=== PATIENT | male | born 1930 | race Caucasian/White ===

== ENCOUNTER 2016-08-06 18:30 | Emergency (ER) | payer MEDICARE ==
--- NOTE | 2016-08-06 18:51 | ER Document Report ---
ED General - General Stated Complaint: ALTERED MENTAL STATUS Time seen by provider: 18:48 Mode of Arrival: Stretcher Information source: Outside Facility Records TRAVEL OUTSIDE OF THE [place] IN LAST 30 DAYS: No - HPI Patient complains to provider of: change in mental status Onset: This morning Onset/Duration: Gradual Quality of pain: No pain Notes: Patient is an 86-year-old male sent from local retirement for complaints of change in mental status, according to nursing staff patient is usually ambulatory, engages in conversation, he has occasional falls, today he suffered 2 falls, has been less communicative and has not been eating or drinking well, EMS reports his pulse ox on arrival was 72%, however in the emergency room and is 97% on room air, patient has no complaints at present time, denies having any pain, no shortness of breath, no abdominal pain, no chest pain - Related Data Allergies/Adverse Reactions: No Known Allergies Allergy (Verified 05/03/14 18:51) Past Medical History - General Information source: Patient, Emergency Med Personnel, Outside Facility Records - Social History Smoking Status: Unknown if Ever Smoked Family History: Reviewed & Not Pertinent - Past Medical History Cardiac Medical History: Reports: Hx Coronary Artery Disease, Hx Hypercholesterolemia, Hx Hypertension Neurological Medical History: Denies: Hx Cerebrovascular Accident Renal/ Medical History: Reports: Hx Kidney Stones GI Medical History: Reports: Hx Diverticulitis Past Surgical History: Reports: Hx Abdominal Surgery - inguinal hernia repair, Hx Appendectomy, Hx Cardiac Catheterization, Hx Cardiac Surgery - triple bypass , stents placed - Immunizations Hx Diphtheria, Pertussis, Tetanus Vaccination: No Review of Systems - Review of Systems -: Yes ROS unobtainable due to patient's medical condition Neurological/Psychological: Confusion Physical Exam - Vital signs Vitals: Temp Pulse Resp BP Pulse Ox 98.9 F 105 H 16 123/79 97 08/06/16 18:50 08/06/16 18:50 08/06/16 18:50 08/06/16 18:50 08/06/16 18:50 Interpretation: Normal - General General appearance: Alert In distress: None Notes: Patient appears chronically ill, cachectic - HEENT Head: Normocephalic, Atraumatic Eyes: Normal Conjunctiva: Normal Extraocular movements intact: Yes Eyelashes: Normal Pupils: PERRL Sinus: Normal Nasal: Normal Mouth/Lips: Normal Mucous membranes: Dry Pharynx: Normal Neck: Normal - Respiratory Respiratory status: No respiratory distress Chest status: Nontender Breath sounds: Normal Chest palpation: Normal - Cardiovascular Rhythm: Regular Heart sounds: Normal auscultation Murmur: No - Abdominal Inspection: Normal Distension: No distension Bowel sounds: Normal Tenderness: Nontender Organomegaly: No organomegaly - Back Back: Normal, Nontender - Extremities General upper extremity: Normal inspection, Nontender, Normal color, Normal ROM , Normal temperature General lower extremity: Normal inspection, Nontender, Normal color, Normal ROM , Normal temperature. No: Daryl's sign - Neurological Cognition: Confused Orientation: Disoriented to place, Disoriented to events Shahbaz Coma Scale Eye Opening: Spontaneous Shahbaz Coma Scale Verbal: Confused [place] Coma Scale Motor: Obeys Commands Shahbaz Coma Scale Total: 14 Speech: Normal Motor strength normal: LUE, RUE, LLE, RLE Sensory: Normal - Psychological Associated symptoms: Normal affect, Normal mood - Skin Skin Temperature: Warm Skin Moisture: Dry Skin Color: Normal Course - Re-evaluation Re-evalutation: 08/07/16 01:02 I placed a call the patient's son who is the next of kin and emergency contact of record, Sukumar Zelaya, patient confirms that patient is in fact a DO NOT RESUSCITATE/DO NOT INTUBATE, and that the last time patient had a cardiac issue he did not want to have any invasive procedure such as a cardiac catheterization or a bypass surgery, patient's son confirms that he does not wish to have his father subjected to any invasive procedures, he states he talked to his father at least twice in the past week during visits to the retirement, he feels as though his father has "given up on life", and is likely ready to , patient's son Sukumar reports that he would just like to keep patient comfortable at this point in time, patient does have a DO NOT RESUSCITATE according to the retirement and previous hospital records 08/07/16 01:24 Patient was discussed with the hospitalist who does not feel as though patient meets criteria for inpatient admission, as according to family members he is comfort care only at this point in time, recommends patient be started on a beta zara and daily aspirin, and be discharged back to the retirement Patient continues to rest comfortably, denies having any complaints, stable vital signs 08/07/16 04:05 Compotype Operator was called and requested to page patient's primary care provider Dr. May 08/07/16 04:32 Once again paraffin plant operator was called and requested page patient's primary care provider Dr. May 08/07/16 04:45 Since patient is a DO NOT RESUSCITATE and comfort care only, has no complaints at present time with stable vital signs, OB discharge back to the retirement with prescription for antibiotics for treatment of urinary tract infection - Vital Signs Vital signs: Temp Pulse Resp BP Pulse Ox 97.7 F 105 H 21 H 123/79 99 08/06/16 23:00 08/06/16 18:50 08/06/16 23:00 08/06/16 18:50 08/06/16 23:00 - Laboratory Result Diagrams: 08/06/16 19:10 08/06/16 19:10 Laboratory results interpreted by me: 08/06/16 08/06/16 08/06/16 19:10 19:10 20:09 RDW 15.1 H Seg Neutrophils % 84.6 H Lymphocytes % 8.3 L BUN 26 H Glucose 161 H Total Bilirubin 1.8 H Direct Bilirubin 0.6 H TSH Free T4 Urine Protein 100 H Urine Ketones TRACE H Urine Blood LARGE H Urine Urobilinogen 4.0 H Ur Leukocyte Esterase SMALL H 08/07/16 01:56 RDW Seg Neutrophils % Lymphocytes % BUN Glucose Total Bilirubin Direct Bilirubin TSH < 0.02 L Free T4 3.33 H Urine Protein Urine Ketones Urine Blood Urine Urobilinogen Ur Leukocyte Esterase - Diagnostic Test Radiology reviewed: Image reviewed, Reports reviewed - EKG Interpretation by Me Rate: Tachycardia Rhythm: A.Fib, A.Flutter Discharge - Discharge Clinical Impression: Urinary tract infection Qualifiers: Urinary tract infection type: site unspecified Hematuria presence: without hematuria Qualified Code(s): N39.0 - Urinary tract infection, site not specified Condition: Stable Disposition: HOME, SELF-CARE Instructions: Urinary Tract Infection ([facility]) Additional Instructions: Follow up with your primary care provider in one to 2 days. Return to the emergency room immediately if symptoms worsen or any additional concerns. Prescriptions: Cephalexin Monohydrate [Keflex 500 mg Capsule] 500 mg PO BID #20 capsule
[2016-08-06 19:20] LABS: ABSOLUTE BASOPHILS # (AUTO) 0.1 10^3/uL (0.0-0.2); ABSOLUTE EOSINOPHILS # (AUTO) 0.1 10^3/uL (0.0-0.6); ABSOLUTE LYMPHOCYTES (AUTO) 0.8 10^3/uL (0.5-4.7); ABSOLUTE MONOCYTES (AUTO) 0.5 10^3/uL (0.1-1.4); ABSOLUTE NEUT (AUTO) 7.6 10^3/uL (1.7-8.2); BASOPHILS % (AUTO) 0.7 % (0-2); EOSINOPHILS % (AUTO) 1.1 % (0-6); HEMATOCRIT 41.3 % (37.9-51.0); HEMOGLOBIN 14.1 g/dL (13.5-17.0); LYMPHOCYTES % (AUTO) 8.3 % (13-45); MEAN CORPUSCULAR HEMOGLOBIN 30.3 pg (27.0-33.4); MEAN CORPUSCULAR HGB CONC 34.1 g/dL (32.0-36.0); MEAN CORPUSCULAR VOLUME 89 fl (80-97); MONOCYTES % (AUTO) 5.3 % (3-13); RED BLOOD COUNT 4.66 10^6/uL (4.35-5.55); RED CELL DISTRIBUTION WIDTH 15.1 % (11.5-14.0); SEGMENTED NEUTROPHILS % (AUTO) 84.6 % (42-78)
[2016-08-06 19:22] LABS: VENOUS BLOOD BASE EXCESS -0.8 mmol/L; VENOUS BLOOD HCO3 24.3 mmol/L (20-32); VENOUS BLOOD PCO2 41.9 mmHg (35-63); VENOUS BLOOD PH 7.38 (7.30-7.42)
[2016-08-06 19:39] LABS: ALANINE AMINOTRANSFERASE 24 U/L (21-72); ALBUMIN 3.5 g/dL (3.5-5.0); ALKALINE PHOSPHATASE 81 U/L (38-126); ANION GAP 13 (5-19); ASPARTATE AMINO TRANSFERASE 22 U/L (17-59); BILIRUBIN,DIRECT 0.6 mg/dL (0.0-0.4); BILIRUBIN,TOTAL 1.8 mg/dL (0.2-1.3); BLOOD UREA NITROGEN 26 mg/dL (7-20); CALCIUM 8.9 mg/dL (8.4-10.2); CARBON DIOXIDE 26 mmol/L (22-30); CHLORIDE 101 mmol/L (98-107); CREATININE RESULT 0.99 mg/dL (0.52-1.25); GLUCOSE 161 mg/dL (75-110); POTASSIUM 3.9 mmol/L (3.6-5.0); SODIUM 140.2 mmol/L (137-145); TOTAL PROTEIN 6.9 g/dL (6.3-8.2)
[2016-08-06 20:26] LABS: APPEARANCE,URINE SLIGHTLY-CLOUDY; BILIRUBIN,URINE NEGATIVE (NEGATIVE); GLUCOSE, URINE NEGATIVE (NEGATIVE); KETONES,URINE TRACE mg/dL (NEGATIVE); LEUKOCYTE ESTERASE,URINE SMALL (NEGATIVE); NITRITE,URINE NEGATIVE (NEGATIVE); PROTEIN,URINE 100 mg/dL (NEGATIVE); URINE SPECIFIC GRAVITY 1.027
[2016-08-06] MEDS ORDERED: NORMAL SALINE 1000 ML 1,000 ML IV PRN ×2 (20:43)
[2016-08-06] MEDS ORDERED: CEPHALEXIN 500 MG CAPSULE PO ONE (21:14)
[2016-08-06 23:20] LABS: CREATINE KINASE MB 1.94 ng/mL (<4.55)
[2016-08-06 23:22] LABS: TROPONIN I 0.111 ng/mL
[2016-08-07 00:47] LABS: CREATINE KINASE MB 1.66 ng/mL (<4.55)
[2016-08-07 00:51] LABS: TROPONIN I 0.153 ng/mL
[2016-08-07] MEDS ORDERED: ASPIRIN 81 MG TABLET, CHEWABLE PO ONE (01:38)
[2016-08-07] MEDS ORDERED: METOPROLOL TARTRATE 25 MG TABLET PO ONE (01:41)
[2016-08-07 02:33] LABS: FREE T3 5.01 pg/mL (2.77-5.27)
[2016-08-07 02:47] LABS: THYROID STIMULATING HORMONE < 0.02 uIU/mL (0.47-4.68)
[2016-08-07 05:09] VITALS: BP 106/70
--- NOTE | 2016-08-07 07:21 | EKG REPORT ---
SEVERITY:- ABNORMAL ECG - ATRIAL FIBRILLATION LEFT BUNDLE BRANCH BLOCK : Confirmed by: David Arrieta MD 07-Aug-2016 07:20:42
--- NOTE | 2016-08-07 07:23 | EKG REPORT ---
SEVERITY:- ABNORMAL ECG - SINUS TACHYCARDIA WITH PAC AND PVC. LEFT BUNDLE BRANCH BLOCK : Confirmed by: David Arrieta MD 07-Aug-2016 07:22:24
--- NOTE | 2016-08-07 07:24 | EKG REPORT ---
SEVERITY:- ABNORMAL ECG - SINUS TACH WITH PAC LEFT BUNDLE BRANCH BLOCK MUSCLE TREMORS. : Confirmed by: David Arrieta MD 07-Aug-2016 07:23:37
== END 2016-08-07 06:00 | disposition home or self-care (01) ==
LOC: ER 18:30
DX: N39.0 Urinary tract infection, site not specified (principal); R41.82 Altered mental status, unspecified; W19.XXXA Unspecified fall, initial encounter; Y92.129 Unspecified place in nursing home as the place of occurrence of the external cause; I25.10 Atherosclerotic heart disease of native coronary artery without angina pectoris; E78.00 Pure hypercholesterolemia, unspecified; I11.0 Hypertensive heart disease with heart failure; Z87.442 Personal history of urinary calculi; Z95.1 Presence of aortocoronary bypass graft; Z66 Do not resuscitate
CPT/HCPCS: 93005 ×2; 99285; 36415; 87040; 87086; 84439; 82553; 82550; 84443; 85025; 80053; 81001; 84484; 84481; 82803; 71010; 70450; 93010 ×2; A9270 ×3; J7030

== ENCOUNTER 2016-08-07 19:15 | Emergency (ER) | payer MEDICARE ==
--- NOTE | 2016-08-07 19:48 | ER Document Report ---
ED General - General Stated Complaint: FALL/WELL CHECK Time seen by provider: 19:40 Notes: Patient is an 86-year-old male that comes emergency department from long-term care facility by EMS for chief complaint of weakness. Son is with patient tonight, patient was evaluated here yesterday discharged, son states the patient barely eat anything, is reduced in his responsiveness, and has just stopped walking. He states within the past weeks to even days patient has been eating, ambulating, and functioning at a high level. No fevers, no complaints reported otherwise. Patient denies any pain, states he feels "fine". Patient oriented to place, person, and others. Patient is DO NOT RESUSCITATE, desires no procedures, however family is stating that any other interventions they do want. Son also states he was informed today that patient fell 2 weeks ago at the intermediate also no injury specifically reported patient and family cannot tell me any details of the fall. Past medical history of open heart surgery, stent placement, hyperlipidemia, hypothyroidism, kidney stones, paroxysmal atrial fibrillation with no history of treatment for this, abdominal surgeries including appendectomy and hernia repair. TRAVEL OUTSIDE OF THE [place] IN LAST 30 DAYS: No - Related Data Allergies/Adverse Reactions: No Known Allergies Allergy (Verified 05/03/14 18:51) Past Medical History - General Information source: Patient, Relative - Son - Social History Smoking Status: Never Smoker Frequency of alcohol use: None Drug Abuse: None Lives with: Shelter Family History: Reviewed & Not Pertinent - Past Medical History Cardiac Medical History: Reports: Hx Coronary Artery Disease, Hx Hypercholesterolemia, Hx Hypertension Neurological Medical History: Denies: Hx Cerebrovascular Accident Renal/ Medical History: Reports: Hx Kidney Stones. Denies: Hx Peritoneal Dialysis GI Medical History: Reports: Hx Diverticulitis Past Surgical History: Reports: Hx Abdominal Surgery - inguinal hernia repair, Hx Appendectomy, Hx Cardiac Catheterization, Hx Cardiac Surgery - triple bypass , stents placed - Immunizations Hx Diphtheria, Pertussis, Tetanus Vaccination: No Review of Systems - Review of Systems Constitutional: See HPI EENT: No symptoms reported Cardiovascular: No symptoms reported Respiratory: No symptoms reported Gastrointestinal: No symptoms reported Genitourinary: No symptoms reported Male Genitourinary: No symptoms reported Musculoskeletal: No symptoms reported Skin: No symptoms reported Hematologic/Lymphatic: No symptoms reported Neurological/Psychological: See HPI Physical Exam - Vital signs Vitals: Temp Pulse Resp BP Pulse Ox 98.1 F 89 16 125/69 95 08/07/16 20:59 08/07/16 20:59 08/07/16 20:59 08/07/16 20:59 08/07/16 20:59 Interpretation: Normal - General General appearance: Appears well, Alert In distress: None - Patient lying quietly on the bed - HEENT Head: Normocephalic, Atraumatic Eyes: Normal Conjunctiva: Normal Extraocular movements intact: Yes Eyelashes: Normal Pupils: PERRL Nasal: Normal Mouth/Lips: Normal Mucous membranes: Normal Pharynx: Normal Neck: Normal - Respiratory Respiratory status: No respiratory distress Chest status: Nontender. No: Tender Breath sounds: Normal. No: Decreased air movement Chest palpation: Normal - Cardiovascular Rhythm: Regular. No: Tachycardia, Bradycardia Heart sounds: Normal auscultation, S1 appreciated, S2 appreciated Murmur: Yes - /6 heard throughout - Abdominal Inspection: Normal Distension: No distension Bowel sounds: Normal Tenderness: Nontender. No: Tender, Guarding Organomegaly: No organomegaly - Back Back: Normal, Nontender. No: Tender, Vertebra tenderness - Extremities General upper extremity: Normal inspection, Nontender, Normal color, Normal ROM , Normal temperature General lower extremity: Normal inspection - No signs of injury, no tenderness with palpation of the hips, patient raises both legs up off the bed without difficulty, Nontender, Normal color, Normal ROM, Normal temperature, Normal weight bearing. 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 EKG shows left bundle branch block and is consistent with previous EKG, troponin indeterminate, decreased from prior, no complaints of chest pain. Chest x-ray unremarkable. CBC, chemistry with no significant change or abnormality. Urinalysis shows hematuria still present, patient with no flank pain or abdominal pain, no fever, urine culture placed, patient is already on Keflex. Son with concern about dad's decline, states he thinks patient has kind of checked out and is acting like he is ready to go. Patient does not specifically say this. I do suspect there is a component of this, although there is no obvious evidence of acute illness or abnormality requiring hospitalization. I discussed with Dr. Jones, recommends discharge back to nursing facility with return precautions and primary care follow-up. I did discuss all details with son and his in detail, they state understanding, they state gratefulness for information and agreement with patient going back to the intermediate tonight. - Vital Signs Vital signs: Temp Pulse Resp BP Pulse Ox 98.1 F 64 18 146/78 H 96 08/07/16 20:59 08/08/16 00:34 08/08/16 00:34 08/08/16 00:34 08/08/16 00:34 - Laboratory Result Diagrams: 08/07/16 20:45 08/07/16 20:45 Laboratory results interpreted by me: 08/07/16 08/07/16 08/07/16 20:45 20:45 21:15 RBC 4.04 L Hgb 12.2 L Hct 35.5 L RDW 14.8 H BUN 21 H Calcium 8.0 L Total Bilirubin 1.6 H Direct Bilirubin 0.5 H Total Protein 5.8 L Albumin 2.8 L Urine Protein 30 H Urine Blood SMALL H Urine Urobilinogen 4.0 H Ur Leukocyte Esterase SMALL H Discharge - Discharge Clinical Impression: Weakness Condition: Stable Disposition: HOME, SELF-CARE Additional Instructions: No acute abnormalities are noted on his workup today, we have a urine culture pending, continue Keflex antibiotic. Examination and workup consistent with general decline. Follow-up with primary care. Return to the emergency department for any concerning or worsening symptoms including abdominal or chest pain, fever, etc.
[2016-08-07 20:55] LABS: ABSOLUTE BASOPHILS # (AUTO) 0.1 10^3/uL (0.0-0.2); ABSOLUTE EOSINOPHILS # (AUTO) 0.1 10^3/uL (0.0-0.6); ABSOLUTE LYMPHOCYTES (AUTO) 0.9 10^3/uL (0.5-4.7); ABSOLUTE MONOCYTES (AUTO) 0.5 10^3/uL (0.1-1.4); ABSOLUTE NEUT (AUTO) 5.6 10^3/uL (1.7-8.2); BASOPHILS % (AUTO) 0.9 % (0-2); EOSINOPHILS % (AUTO) 1.9 % (0-6); HEMATOCRIT 35.5 % (37.9-51.0); HEMOGLOBIN 12.2 g/dL (13.5-17.0); HGB HCT DIFFERENCE 1.1; LYMPHOCYTES % (AUTO) 13.1 % (13-45); MEAN CORPUSCULAR HEMOGLOBIN 30.1 pg (27.0-33.4); MEAN CORPUSCULAR HGB CONC 34.3 g/dL (32.0-36.0); MEAN CORPUSCULAR VOLUME 88 fl (80-97); MONOCYTES % (AUTO) 7.3 % (3-13); RED BLOOD COUNT 4.04 10^6/uL (4.35-5.55); RED CELL DISTRIBUTION WIDTH 14.8 % (11.5-14.0); SEGMENTED NEUTROPHILS % (AUTO) 76.8 % (42-78); WHITE BLOOD COUNT 7.2 10^3/uL (4.0-10.5)
[2016-08-07 21:15] LABS: ALANINE AMINOTRANSFERASE 29 U/L (21-72); ALBUMIN 2.8 g/dL (3.5-5.0); ALKALINE PHOSPHATASE 73 U/L (38-126); ANION GAP 11 (5-19); ASPARTATE AMINO TRANSFERASE 19 U/L (17-59); BILIRUBIN,DIRECT 0.5 mg/dL (0.0-0.4); BILIRUBIN,TOTAL 1.6 mg/dL (0.2-1.3); BLOOD UREA NITROGEN 21 mg/dL (7-20); CARBON DIOXIDE 23 mmol/L (22-30); CHLORIDE 106 mmol/L (98-107); CREATINE KINASE 87 U/L (55-170); CREATININE RESULT 0.75 mg/dL (0.52-1.25); GLUCOSE 96 mg/dL (75-110); SODIUM 139.7 mmol/L (137-145); TOTAL PROTEIN 5.8 g/dL (6.3-8.2)
[2016-08-07 21:26] LABS: CREATINE KINASE MB 1.66 ng/mL (<4.55)
[2016-08-07 21:31] LABS: TROPONIN I 0.08 ng/mL
[2016-08-07 21:35] LABS: APPEARANCE,URINE SLIGHTLY-CLOUDY; BILIRUBIN,URINE NEGATIVE (NEGATIVE); GLUCOSE, URINE NEGATIVE (NEGATIVE); KETONES,URINE NEGATIVE (NEGATIVE); LEUKOCYTE ESTERASE,URINE SMALL (NEGATIVE); NITRITE,URINE NEGATIVE (NEGATIVE); PROTEIN,URINE 30 mg/dL (NEGATIVE); URINE SPECIFIC GRAVITY 1.027
[2016-08-07] MEDS ORDERED: NORMAL SALINE 1000 ML 500 ML IV ONE (21:48)
[2016-08-08 00:35] VITALS: BP 146/78
--- NOTE | 2016-08-08 08:27 | EKG REPORT ---
SEVERITY:- ABNORMAL ECG - SINUS RHYTHM W PACS LEFT BUNDLE BRANCH BLOCK : Confirmed by: David Arrieta MD 08-Aug-2016 08:26:46
== END 2016-08-08 00:35 | disposition home or self-care (01) ==
LOC: ER 19:15
DX: R53.1 Weakness (principal); E03.9 Hypothyroidism, unspecified; I25.10 Atherosclerotic heart disease of native coronary artery without angina pectoris; E78.00 Pure hypercholesterolemia, unspecified; Z87.442 Personal history of urinary calculi; Z95.1 Presence of aortocoronary bypass graft; Z66 Do not resuscitate
CPT/HCPCS: 93005; 99285; 36415; 87086; 82553; 82550; 85025; 80053; 81001; 84484; 71010; 93010; J7030

== ENCOUNTER 2016-10-30 10:21 | Emergency (ER) | payer MEDICARE ==
--- NOTE | 2016-10-30 11:10 | ER Document Report ---
ED General - General Chief Complaint: Leg Pain Stated Complaint: FALL;FEMUR PAIN Time Seen by Provider: 10/30/16 10:44 TRAVEL OUTSIDE OF THE [place] IN LAST 30 DAYS: No - HPI Notes: Patient is a 6-year-old male who presents the ED complaining of right hip and leg pain status post a fall on his right side yesterday. Patient has a history of gout, coronary artery disease, hypothyroid, A. fib (paroxysmal), Parkinson, dementia. Patient states that he was walking by himself lost his footing and fell onto his right side, he denies any head or neck injury. Patient states that he has not had any other pains. He still eating and drink without problems. Urinary and bowel movements have been normal. Patient states that he did get evaluation yesterday and imaging by [facility]. Radiologist read and inconclusive results and suggested further evaluation with CT scan of the pelvis and right hip. Since his pain, patient has not been able to ambulate normally. Patient states he is otherwise feeling okay with no other concerns or complaints. Denies any headache, dizziness, URI, fever, chest pain, palpations, syncope, cough, wheeze, shortness of breath, abdominal pain, nausea/ vomiting/diarrhea, melena, hematochezia, dysuria, hematuria, back pain, acute, muscle weakness/paralysis or rash. - Related Data Allergies/Adverse Reactions: No Known Allergies Allergy (Verified 10/30/16 10:48) Past Medical History - Social History Smoking Status: Unknown if Ever Smoked Family History: Reviewed & Not Pertinent - Past Medical History Cardiac Medical History: Reports: Hx Atrial Fibrillation, Hx Coronary Artery Disease, Hx Hypercholesterolemia, Hx Hypertension Neurological Medical History: Denies: Hx Cerebrovascular Accident Renal/ Medical History: Reports: Hx Kidney Stones. Denies: Hx Peritoneal Dialysis GI Medical History: Reports: Hx Diverticulitis Musculoskeltal Medical History: Reports Hx Arthritis - gout Past Surgical History: Reports: Hx Abdominal Surgery - inguinal hernia repair, Hx Appendectomy, Hx Cardiac Catheterization, Hx Cardiac Surgery - triple bypass , stents placed - Immunizations Hx Diphtheria, Pertussis, Tetanus Vaccination: No Review of Systems - Review of Systems Notes: REVIEW OF SYSTEMS: CONSTITUTIONAL : Denies fever, chills, or sweats. Denies recent illness. EENT: Denies eye, ear, throat, or mouth pain or symptoms. Denies nasal or sinus congestion or discharge. Denies throat, tongue, or mouth swelling or difficulty swallowing. CARDIOVASCULAR: Denies chest pain. Denies palpitations or racing or irregular heart beat. Denies ankle edema. RESPIRATORY: Denies cough, cold, or chest congestion. Denies shortness of breath, difficulty breathing, or wheezing. GASTROINTESTINAL: Denies abdominal pain or distention. Denies nausea, vomiting , or diarrhea. Denies blood in vomitus, stools, or per rectum. Denies black, tarry stools. Denies constipation. GENITOURINARY: Denies difficulty urinating, painful urination, burning, frequency, blood in urine, or discharge. MUSCULOSKELETAL: see hpi SKIN: Denies rash, lesions or sores. NEUROLOGICAL: Denies confusion or altered mental status. Denies passing out or loss of consciousness. Denies dizziness or lightheadedness. Denies headache. Denies weakness or paralysis or loss of use of either side. Denies problems with gait or speech. Denies sensory loss, numbness, or tingling. Denies seizures. PSYCHIATRIC: Denies anxiety or stress. Denies depression, suicidal ideation, or homicidal ideation. ALL OTHER SYSTEMS REVIEWED AND NEGATIVE. Dictation was performed using [employer] voice recognition software Physical Exam - Vital signs Vitals: Temp Pulse Resp BP Pulse Ox 98.5 F 66 18 112/66 98 10/30/16 10:28 10/30/16 10:28 10/30/16 10:28 10/30/16 10:28 10/30/16 10:28 Notes: PHYSICAL EXAMINATION: GENERAL: Well-appearing, well-nourished and in no acute distress. A&Ox2 HEAD: Atraumatic, normocephalic. Non-tender. No smith sign. EYES: Pupils equal round and reactive to light, extraocular movements intact, sclera anicteric, conjunctiva are normal. No raccoon eyes. ENT: EAC clear b/l. TM's intact b/l without erythema, fluid, or perforation. Nares patent and without discharge. oropharynx clear without exudates. No tonsilar hypertrophy or erythema. Moist mucous membranes. No sinus tenderness. No hemotympanum/CSF discharge. NECK: Normal range of motion, supple without lymphadenopathy. No rigidity/ tenderness. Chest: non-tender. No flail chest. Equal rise/fall. LUNGS: Breath sounds clear to auscultation bilaterally and equal. No wheezes rales or rhonchi. HEART: Regular rate and rhythm without murmurs, rubs, gallops. ABDOMEN: Soft, nontender, nondistended abdomen. No guarding, no rebound. No masses appreciated. Normal bowel sounds present. No CVA tenderness bilaterally. No ecchymosis. Musculoskeletal: + tenderness to the rt hip/femur and tib/fib. No knee tenderness. LROM due to pain of the hip. FROM to the knee/ankle. PUlse 1+ b/ l. Sensation intact. Extremities: No cyanosis, clubbing, or edema b/l. Peripheral pulses 1+. Capillary refill less than 3 seconds. NEUROLOGICAL: Cranial nerves grossly intact. Normal sensory, motor exams. Speech is hard to understand at times, and not always clear. PSYCH: Normal mood, normal affect. SKIN: Warm, Dry, normal turgor, no rashes or lesions noted. Course - Re-evaluation Re-evalutation: 10/30/16 13:33 Patient is an afebrile, well-hydrated, 86-year-old male the ED complaining of right hip and leg pain. Vitals are stable. PE otherwise unremarkable. Patient did have an x-ray performed yesterday due to hip pain and it was inclusive they recommended CT scan of pelvis and right hip. CT scan of the hip and pelvis were ordered today, which showed an acute right intertrochanteric proximal femur fracture. Preop workup started, 100 mL/h normal saline started, and low-dose of morphine was given for pain control. PE otherwise unremarkable. Patient appears to be neurologically intact without any focal muscle weakness or deficit patient is not known to be on any anticoagulants. Reviewed with Dr. Bauer, [facility] orthopedist, who will accept patient on the ED to ED transfer. Reviewed case with Dr. Gonzalez as well was in agreement. Directions per orthopedic otherwise. Return to ED with any other worsening/concerning symptoms as reviewed. Patient is in agreement. 10/30/16 15:20 urine came back with an infection: Rocephin 1g given IV. Pt transport arrived. Pt states he is feeling good, no new concerns. Vitals stable. Stable for transport. - Vital Signs Vital signs: Temp Pulse Resp BP Pulse Ox 98.3 F 69 20 156/74 H 95 10/30/16 15:06 10/30/16 15:06 10/30/16 15:06 10/30/16 15:06 10/30/16 15:06 - Laboratory Result Diagrams: 10/30/16 13:58 10/30/16 13:58 Laboratory results interpreted by me: 10/30/16 10/30/16 10/30/16 13:58 13:58 14:40 RBC 4.20 L Hgb 12.4 L Hct 37.5 L RDW 18.8 H Seg Neutrophils % 78.2 H ALT 20 L Albumin 3.3 L Urine Protein 100 H Urine Blood SMALL H Urine Nitrite POSITIVE H Ur Leukocyte Esterase MODERATE H Discharge - Discharge Clinical Impression: Intertrochanteric fracture of right femur Qualifiers: Encounter type: initial encounter Fracture type: closed Fracture alignment: nondisplaced Qualified Code(s): S72.144A - Nondisplaced intertrochanteric fracture of right femur, initial encounter for closed fracture Condition: Stable Disposition: [facility] Referrals: SHANNEN GREY MD [Primary Care Provider] - Follow up as needed
--- NOTE | 2016-10-30 12:04 | RADIOLOGY REPORT (SQ) ---
EXAM DESCRIPTION: TIBIA FIBULA RIGHT COMPLETED DATE/TIME: 10/30/2016 11:39 am REASON FOR STUDY: rt hip/leg pain. COMPARISON: None. TECHNIQUE: Three views right tibia and fibula. LIMITATIONS: None. FINDINGS: No acute fracture or bony destructive change identified. Limited visualization of the kne e and ankle intact. Numerous surgical clips seen medially of the soft tissues. Arterial calcification. IMPRESSION: No acute bony changes. TECHNICAL DOCUMENTATION: JOB ID: [id number]- All Rights Reserved
--- NOTE | 2016-10-30 12:09 | RADIOLOGY REPORT (SQ) ---
EXAM DESCRIPTION: CT RT LOWER EXTREMITY WITHOUT COMPLETED DATE/TIME: 10/30/2016 11:27 am REASON FOR STUDY: rt hip/leg pain. COMPARISON: CT bony pelvis same date TECHNIQUE: CT scan of the right hip from the acetabulum to the tibia performed without intravenous o r oral contrast. Images reviewed with soft tissue and bone windows. Reconstructed coronal and sagittal MPR images reviewed. All images stored on PACS. All CT scanners at this facility use dose modulation, iterative reconstruction, and/or weight based d osing when appropriate to reduce radiation dose to as low as reasonably achievable (ALARA). [facility]: Dose Right [facility]: CareDose [facility]: Dose Right [facility]: Teradose 4D [facility]: [employer] RADIATION DOSE: Up-to-date CT equipment and radiation dose reduction techniques were employed. CTDIv ol: 4.1 mGy. DLP: 321 mGy-cm. mGy. LIMITATIONS: None. FINDINGS: An acute right intertrochanteric comminuted fracture present without significant varus ang ulation. Old healed right superior and inferior pubic ramus fractures. Remainder of the right femur is intact. Please note that there is some motion artifact. Chondrocalc inosis right knee. Soft tissue windows demonstrate atherosclerotic arterial vascular calcification throughout the field of view, and a left-sided double-J ureteral stent with the distal loop in the urinary bladder. IMPRESSION: Acute right intertrochanteric proximal femoral fracture. TECHNICAL DOCUMENTATION: JOB ID: [id number] Quality ID # [id number]: Final reports with documentation of one or more dose reduction techniques (e.g., Au tomated exposure control, adjustment of the mA and/or kV according to patient size, use of iterative reconstruction technique) 2010 [employer]- All Rights Reserved
[2016-10-30] MEDS ORDERED: MORPHINE SULFATE 10 MG/ML INJ IV ONE (12:28)
[2016-10-30] MEDS ORDERED: NORMAL SALINE 1000 ML 1,000 ML IV ONE (13:07)
[2016-10-30 14:13] LABS: ABSOLUTE BASOPHILS # (AUTO) 0.1 10^3/uL (0.0-0.2); ABSOLUTE EOSINOPHILS # (AUTO) 0.1 10^3/uL (0.0-0.6); ABSOLUTE LYMPHOCYTES (AUTO) 1.2 10^3/uL (0.5-4.7); ABSOLUTE MONOCYTES (AUTO) 0.6 10^3/uL (0.1-1.4); BASOPHILS % (AUTO) 0.6 % (0-2); EOSINOPHILS % (AUTO) 0.7 % (0-6); HEMATOCRIT 37.5 % (37.9-51.0); HEMOGLOBIN 12.4 g/dL (13.5-17.0); HGB HCT DIFFERENCE -0.3; LYMPHOCYTES % (AUTO) 13.4 % (13-45); MEAN CORPUSCULAR HEMOGLOBIN 29.5 pg (27.0-33.4); MEAN CORPUSCULAR HGB CONC 33.1 g/dL (32.0-36.0); MEAN CORPUSCULAR VOLUME 89 fl (80-97); MONOCYTES % (AUTO) 7.1 % (3-13); RED CELL DISTRIBUTION WIDTH 18.8 % (11.5-14.0); SEGMENTED NEUTROPHILS % (AUTO) 78.2 % (42-78)
[2016-10-30 14:31] LABS: ALANINE AMINOTRANSFERASE 20 U/L (21-72); ALBUMIN 3.3 g/dL (3.5-5.0); ALKALINE PHOSPHATASE 118 U/L (38-126); ANION GAP 10 (5-19); ASPARTATE AMINO TRANSFERASE 17 U/L (17-59); BILIRUBIN,DIRECT 0.3 mg/dL (0.0-0.4); BILIRUBIN,TOTAL 0.7 mg/dL (0.2-1.3); BLOOD UREA NITROGEN 17 mg/dL (7-20); CALCIUM 8.7 mg/dL (8.4-10.2); CARBON DIOXIDE 26 mmol/L (22-30); CHLORIDE 104 mmol/L (98-107); CREATININE RESULT 0.77 mg/dL (0.52-1.25); GLUCOSE 103 mg/dL (75-110); POTASSIUM 4.4 mmol/L (3.6-5.0); SODIUM 139.9 mmol/L (137-145)
--- NOTE | 2016-10-30 14:46 | RADIOLOGY REPORT (SQ) ---
EXAM DESCRIPTION: CT PELVIS WITHOUT COMPLETED DATE/TIME: 10/30/2016 11:27 am REASON FOR STUDY: rt hip/leg pain. COMPARISON: CT right hip 10/30/2016 TECHNIQUE: CT scan of the pelvis performed without intravenous or oral contrast. Images reviewed wi th soft tissue and bone windows. Reconstructed coronal and sagittal MPR images reviewed. All images stored on PACS. All CT scanners at this facility use dose modulation, iterative reconstruction, and/or weight based d osing when appropriate to reduce radiation dose to as low as reasonably achievable (ALARA). [facility]: Dose Right [facility]: CareDose [facility]: Dose Right [facility]: Teradose 4D [facility]: [employer] RADIATION DOSE: Up-to-date CT equipment and radiation dose reduction techniques were employed. CTDIv ol: 10.4 mGy. DLP: 338 mGy-cm. mGy. LIMITATIONS: None. FINDINGS: A right proximal femur mildly comminuted intertrochanteric acute fracture is present, best shown on axial images 84-95. Left proximal femur in the field of view is normal. PELVIC BONES: Osteoporotic. No acute fracture of the bony pelvis. Old healed right superior and inf erior pubic ramus fractures. VISUALIZED SPINE: No acute findings. PELVIC SOFT TISSUES: There is a left double-J ureteral stent, with the distal loop in the urinary minnie dder. EXTRAPELVIC SOFT TISSUES: No significant findings. OTHER: Very heavily calcified arteries without iliac artery aneurysm. Degenerative disc changes at L 4-5 with mild to moderate central canal stenosis. IMPRESSION: Acute right hip intertrochanteric fracture. Old healed right superior and inferior pubic rami fractures. TECHNICAL DOCUMENTATION: JOB ID: [id number] Quality ID # [id number]: Final reports with documentation of one or more dose reduction techniques (e.g., Au tomated exposure control, adjustment of the mA and/or kV according to patient size, use of iterative reconstruction technique) 2010 [employer]- All Rights Reserved
[2016-10-30 15:11] VITALS: BP 156/74
[2016-10-30 15:12] LABS: APPEARANCE,URINE TURBID; BILIRUBIN,URINE NEGATIVE (NEGATIVE); GLUCOSE, URINE NEGATIVE (NEGATIVE); KETONES,URINE NEGATIVE (NEGATIVE); LEUKOCYTE ESTERASE,URINE MODERATE (NEGATIVE); NITRITE,URINE POSITIVE (NEGATIVE); PROTEIN,URINE 100 mg/dL (NEGATIVE); UROBILINOGEN,URINE NEGATIVE mg/dL (<2.0)
[2016-10-30] MEDS ORDERED: CEFTRIAXONE INJ 1000 MG VIAL IV ONE (15:18)
--- NOTE | 2016-10-30 20:32 | EKG REPORT ---
SEVERITY:- ABNORMAL ECG - ATRIAL FIBRILLATION, V-RATE 75-101 LEFT BUNDLE BRANCH BLOCK : Confirmed by: David Arrieta MD 30-Oct-2016 20:30:41
== END 2016-10-30 15:27 | disposition short-term general hospital (02) ==
LOC: ER 10:21
DX: S72.144A Nondisplaced intertrochanteric fracture of right femur, initial encounter for closed fracture (principal); M79.604 Pain in right leg; I25.10 Atherosclerotic heart disease of native coronary artery without angina pectoris; E03.9 Hypothyroidism, unspecified; I48.91 Unspecified atrial fibrillation; W19.XXXA Unspecified fall, initial encounter
CPT/HCPCS: 93005; 99285; 96361; 96374; 96375; 36415; 87086; 85025; 87088; 80053; 81001; 87186; 73590; 72192; 73700; 93010; J2270; J0696; J7030

== ENCOUNTER 2017-01-29 14:12 | Inpatient (IN) | payer MEDICARE, MEDICAID ==
--- NOTE | 2017-01-29 14:23 | ER Document Report ---
ED Fall - General Stated Complaint: HIP PAIN Time Seen by Provider: 01/29/17 14:21 Mode of Arrival: Medic Information source: Transfer Record, Emergency Med Personnel TRAVEL OUTSIDE OF THE [place] IN LAST 30 DAYS: No - HPI Occurred: Yesterday - EVENING Where: [facility] Context: Fell from standing Location of injury/pain: Hip - LEFT Quality of pain: Other - CAN'T DESCRIBE Severity: Moderate - Related data Allergies/Adverse Reactions: No Known Allergies Allergy (Verified 10/30/16 10:48) Home Medications: Current Home Medications Acetaminophen [Mapap] 500 mg PO Q6 01/29/17 [History] Acetaminophen [Tylenol 650 mg Supp] 650 mg TX Q4HP PRN 01/29/17 [History] Dextran 70/Hypromellose [Artificial Tears] 1 each OP BID 01/29/17 [History] Furosemide [Lasix 40 mg Tablet] 40 mg PO Q12 01/29/17 [History] Guaifenesin [Guaifenesin ER] 600 mg PO BID 01/29/17 [History] Haloperidol [Haldol 1 Mg Tablet] 1 mg PO Q4 01/29/17 [History] Hyoscyamine Sulfate 0.125 mg PO Q4 01/29/17 [History] Lorazepam [Ativan 0.5 mg Tablet] 0.5 mg SL Q4 01/29/17 [History] Mirtazapine [Remeron 15 mg Tablet] 15 mg PO QHS 01/29/17 [History] Morphine Sulfate [Roxanol] 5 mg PO Q1 PRN 01/29/17 [History] Prochlorperazine [Prochlorperazine] 25 mg RC Q12 01/29/17 [History] Tramadol HCl [Ultram 50 mg Tablet] 50 mg PO Q6HP PRN 01/29/17 [History] Past Medical History - General Information source: Patient - Social History Smoking Status: Unknown if Ever Smoked Cigarette use (# per day): No Chew tobacco use (# tins/day): No Frequency of alcohol use: None Drug Abuse: None Lives with: [facility] Family History: Reviewed & Not Pertinent - Past Medical History Cardiac Medical History: Reports: Hx Atrial Fibrillation, Hx Coronary Artery Disease, Hx Hypercholesterolemia, Hx Hypertension Neurological Medical History: Denies: Hx Cerebrovascular Accident Renal/ Medical History: Reports: Hx Kidney Stones. Denies: Hx Peritoneal Dialysis GI Medical History: Reports: Hx Diverticulitis Musculoskeltal Medical History: Reports Hx Arthritis - gout Past Surgical History: Reports: Hx Abdominal Surgery - inguinal hernia repair, Hx Appendectomy, Hx Cardiac Catheterization, Hx Cardiac Surgery - triple bypass , stents placed - Immunizations Hx Diphtheria, Pertussis, Tetanus Vaccination: No Review of Systems - Review of Systems -: Yes ROS unobtainable due to patient's medical condition Physical Exam - Vital signs Vitals: Resp Pulse Ox 18 95 01/29/17 14:56 01/29/17 14:56 Interpretation: No: Tachycardic, Tachypneic, Febrile - General General appearance: Appears well In distress: None - HEENT Head: Normocephalic Eyes: Normal Conjunctiva: Normal Ears: Normal Nasal: Normal Mouth/Lips: Other - EDENTULOUS Mucous membranes: Dry - Respiratory Respiratory status: No respiratory distress Breath sounds: Normal - Cardiovascular Rhythm: Regular Heart sounds: Normal auscultation Murmur: No - Abdominal Distension: Other - SCAPHOID Tenderness: Nontender - Extremities General upper extremity: Normal inspection General lower extremity: Tender - LEFT HIP. No: Normal inspection - MILD EXT. ROTATION LEFT Hip: Pain with ROM - LEFT Course - Vital Signs Vital signs: Temp Pulse Resp BP Pulse Ox 18 95 01/29/17 14:56 01/29/17 14:56 - Laboratory Result Diagrams: 01/29/17 15:15 01/29/17 15:15 Laboratory results interpreted by me: 01/29/17 15:15 RBC 3.51 L Hgb 11.2 L Hct 32.9 L RDW 15.8 H Seg Neutrophils % 79.7 H Lymphocytes % 12.0 L - Consults DR. PINK Time consulted: 15:02 Consulted provider: will come to ER DR. HENLEY Time consulted: 15:04 Reason for consultation: 01/29/17 15:07 AGREES TO SEE IN CONSULTATION Consulted provider: will see as inpatient Discharge - Discharge Clinical Impression: Hip fracture, intertrochanteric Qualifiers: Encounter type: initial encounter Fracture type: closed Fracture alignment: nondisplaced Laterality: left Qualified Code(s): S72.145A - Nondisplaced intertrochanteric fracture of left femur, initial encounter for closed fracture Condition: Stable Disposition: ADMITTED INPATIENT Admitting Provider: Hospitalist Unit Admitted: Telemetry
[2017-01-29] MEDS ORDERED: HYDROMORPHONE HCL INJ/PF 2 MG/ML AMPULE IV ONE (14:52)
--- NOTE | 2017-01-29 14:53 | RADIOLOGY REPORT (SQ) ---
EXAM DESCRIPTION: HIP LEFT AP/LATERAL COMPLETED DATE/TIME: 01/29/2017 2:42 pm REASON FOR STUDY: INJURY COMPARISON: None. NUMBER OF VIEWS: Two views. TECHNIQUE: AP pelvis and additional frog-leg view of the left hip. LIMITATIONS: None. FINDINGS: MINERALIZATION: Normal. LEFT HIP: There is a nondisplaced low femoral neck fracture versus high intertrochanteric fracture. RIGHT HIP: Surgical hardware is present with medullary shruthi and cannulated screws extending through th e femoral neck. PUBIS AND ISCHIUM: No fracture. PELVIS: No fracture. SACRUM: No fracture or dislocation. No worrisome bone lesions. LOWER LUMBAR SPINE: No fracture or dislocation. No worrisome bone lesions. No significant disc disea se. SOFT TISSUES: No findings. OTHER: No other significant finding. IMPRESSION: Low femoral neck fracture versus high intertrochanteric fracture on the left. TECHNICAL DOCUMENTATION: JOB ID: [id number] [employer]- All Rights Reserved
[2017-01-29] MEDS ORDERED: DORIPENEM INJ 500 MG VIAL IV ONE (15:20)
[2017-01-29 15:36] LABS: ABSOLUTE BASOPHILS # (AUTO) 0.1 10^3/uL (0.0-0.2); ABSOLUTE EOSINOPHILS # (AUTO) 0.2 10^3/uL (0.0-0.6); ABSOLUTE MONOCYTES (AUTO) 0.4 10^3/uL (0.1-1.4); ABSOLUTE NEUT (AUTO) 6.8 10^3/uL (1.7-8.2); BASOPHILS % (AUTO) 0.8 % (0-2); EOSINOPHILS % (AUTO) 2.3 % (0-6); HEMATOCRIT 32.9 % (37.9-51.0); HEMOGLOBIN 11.2 g/dL (13.5-17.0); HGB HCT DIFFERENCE 0.7; MEAN CORPUSCULAR HEMOGLOBIN 31.9 pg (27.0-33.4); MEAN CORPUSCULAR VOLUME 94 fl (80-97); MONOCYTES % (AUTO) 5.2 % (3-13); RED BLOOD COUNT 3.51 10^6/uL (4.35-5.55); RED CELL DISTRIBUTION WIDTH 15.8 % (11.5-14.0); SEGMENTED NEUTROPHILS % (AUTO) 79.7 % (42-78); WHITE BLOOD COUNT 8.5 10^3/uL (4.0-10.5)
[2017-01-29 15:57] LABS: ALANINE AMINOTRANSFERASE 30 U/L (21-72); ALKALINE PHOSPHATASE 141 U/L (38-126); ANION GAP 8 (5-19); ASPARTATE AMINO TRANSFERASE 36 U/L (17-59); BILIRUBIN,DIRECT 0.3 mg/dL (0.0-0.4); BILIRUBIN,TOTAL 0.4 mg/dL (0.2-1.3); BLOOD UREA NITROGEN 26 mg/dL (7-20); CALCIUM 8.5 mg/dL (8.4-10.2); CARBON DIOXIDE 25 mmol/L (22-30); CHLORIDE 105 mmol/L (98-107); GLUCOSE 108 mg/dL (75-110); POTASSIUM 4.1 mmol/L (3.6-5.0); SODIUM 138.4 mmol/L (137-145); TOTAL PROTEIN 6.2 g/dL (6.3-8.2)
[2017-01-29] MEDS ORDERED: NORMAL SALINE 1000 ML 1,000 ML IV PRN (16:01)
[2017-01-29] MEDS ORDERED: ONDANSETRON HCL INJ/PF 4 MG/2 ML SDV IV PRN (16:01)
[2017-01-29] MEDS ORDERED: ACETAMINOPHEN 325 MG TABLET PO PRN (16:01)
[2017-01-29] MEDS ORDERED: OXYCODONE-ACETAMINOPHEN 5-325 MG TABLET PO PRN (16:01)
--- NOTE | 2017-01-29 16:01 | PDOC H&P ---
History of Present Illness Admission Date/PCP: SHANNEN GREY Patient complains of: Hip pain History of Present Illness: NICHOLAS MARRERO is a 86 year old male, with history of Parkinson's disease, coronary artery disease, hypertension and hypothyroidism reportedly bedbound apparently fell in the retirement starting to develop hip pain reportedly on the left. The patient was sent to the emergency room for evaluation where an x- ray of the pelvis revealed a fracture in the left hip. Patient was given Dilaudid and unable to respond at this time. Information obtained from prior records. Information obtained from the transfer note and emergency room records as well. It is unclear how the patient was able to get out of the bed. No reported respiratory discomfort nor temperature spikes nor any nausea or vomiting. No other information available at this time. Information unobtainable from the patient. Past Medical History Cardiac Medical History: Reports: Atrial Fibrillation, Coronary Artery Disease, Hyperlipidema, Hypertension Neurological Medical History: Reports: Other - Parkinson's disease Endocrine Medical History: Reports: Hypothyroidism Renal/ Medical History: Reports: Nephrolithiasis GI Medical History: Reports: Diverticulitis Musculoskeltal Medical History: Reports: Arthritis - gout Past Surgical History Past Surgical History: Reports: Appendectomy, Cardiac Catheterization, Coronary Artery Bypass Graft, Herniorrhaphy Social History [facility] Records Lives with: [facility] Smoking Status: Unknown if Ever Smoked Frequency of Alcohol Use: None Hx Recreational Drug Use: No Drugs: None Hx Prescription Drug Abuse: No Family History Family History: Other - No reported illness noted in the family as per previous records. Unobtainable from the patient. Parental Family History Reviewed: No - Unobtainable Children Family History Reviewed: No - Unobtainable Sibling(s) Family History Reviewed.: No - Unobtainable Medication/Allergy Home Medications: Docusate Sodium [Colace 100 mg Capsule] 100 mg PO BID 05/03/14 Aspirin [Aspirin 81 mg Chewable Tablet] 81 mg PO DAILY #30 tab.chew 05/06/14 Carbidopa/Levodopa [Sinemet 25-100 mg Tablet] 1 tab PO Q12 30 Days tablet 05/06 Levothyroxine Sodium [Synthroid 50 Mcg Tablet] 50 mcg PO DAILY #30 tablet Acetaminophen [Mapap] 500 mg PO Q6 01/29/17 Acetaminophen [Tylenol 650 mg Supp] 650 mg SC Q4HP PRN 01/29/17 Dextran 70/Hypromellose [Artificial Tears] 1 each OP BID 01/29/17 Furosemide [Lasix 40 mg Tablet] 40 mg PO Q12 01/29/17 Guaifenesin [Guaifenesin ER] 600 mg PO BID 01/29/17 Haloperidol [Haldol 1 Mg Tablet] 1 mg PO Q4 01/29/17 Hyoscyamine Sulfate 0.125 mg PO Q4 01/29/17 Lorazepam [Ativan 0.5 mg Tablet] 0.5 mg SL Q4 01/29/17 Mirtazapine [Remeron 15 mg Tablet] 15 mg PO QHS 01/29/17 Morphine Sulfate [Roxanol] 5 mg PO Q1 PRN 01/29/17 Prochlorperazine [Prochlorperazine] 25 mg RC Q12 01/29/17 Tramadol HCl [Ultram 50 mg Tablet] 50 mg PO Q6HP PRN 01/29/17 Allergies/Adverse Reactions: No Known Allergies Allergy (Verified 10/30/16 10:48) Review of Systems ROS unobtainable: Due to mental status - Unobtainable at this time Physical Exam Vital Signs: Temp Pulse Resp BP Pulse Ox 18 95 01/29/17 14:56 01/29/17 14:56 Intake & Output 01/28/17 01/29/17 01/30/17 06:59 06:59 06:59 Weight 52.5 kg General appearance: PRESENT: no acute distress, thin, other - Confused Head exam: PRESENT: normocephalic Eye exam: PRESENT: conjunctiva pale, EOMI Mouth exam: PRESENT: dry mucosa, tongue midline, other - Neck contracted Teeth exam: PRESENT: poor dentation Throat exam: ABSENT: post pharyngeal erythema, tonsillar erythema Neck exam: ABSENT: carotid bruit, JVD, thyromegaly Respiratory exam: PRESENT: clear to auscultation faisal - Poor effort, unlabored. ABSENT: rales, rhonchi, wheezes Cardiovascular exam: PRESENT: RRR, systolic murmur - Left sternal border. ABSENT: gallop GI/Abdominal exam: PRESENT: hyperactive bowel sounds, soft. ABSENT: distended, mass, tenderness Extremities exam: ABSENT: clubbing, pedal edema Neurological exam: PRESENT: altered, awake Psychiatric exam: ABSENT: agitated, anxious Focused psych exam: ABSENT: restlessness Skin exam: PRESENT: dry, warm, other - I do not appreciate any skin tear laceration or ecchymosis on the involved extremity. ABSENT: cyanosis Results Laboratory Results: 01/29/17 15:15 01/29/17 15:15 WBC 8.5 RBC 3.51 L Hgb 11.2 L Hct 32.9 L MCV 94 MCH 31.9 MCHC 34.0 RDW 15.8 H Plt Count 171 Seg Neutrophils % 79.7 H Lymphocytes % 12.0 L Monocytes % 5.2 Eosinophils % 2.3 Basophils % 0.8 Absolute Neutrophils 6.8 Absolute Lymphocytes 1.0 Absolute Monocytes 0.4 Absolute Eosinophils 0.2 Absolute Basophils 0.1 Impressions: Hip X-Ray 01/29/17 14:16 IMPRESSION: Low femoral neck fracture versus high intertrochanteric fracture on the left. Assessment & Plan - Diagnosis (1) Hip fracture, intertrochanteric Qualifiers: Encounter type: initial encounter Fracture type: closed Fracture alignment: nondisplaced Laterality: left Qualified Code(s): S72.145A - Nondisplaced intertrochanteric fracture of left femur, initial encounter for closed fracture Is this a current diagnosis for this admission?: Yes (2) Coronary artery disease Qualifiers: Coronary Disease-Associated Artery/Lesion type: unspecified vessel or lesion type [place] vs. transplanted heart: [place] heart Associated angina: without angina Qualified Code(s): I25.10 - Atherosclerotic heart disease of [place] coronary artery without angina pectoris Is this a current diagnosis for this admission?: Yes (3) Hypothyroid Qualifiers: Hypothyroidism type: acquired Qualified Code(s): E03.9 - Hypothyroidism, unspecified Is this a current diagnosis for this admission?: Yes (4) Parkinson disease Is this a current diagnosis for this admission?: Yes (5) Hyperlipidemia Qualifiers: Hyperlipidemia type: unspecified Qualified Code(s): E78.5 - Hyperlipidemia , unspecified Is this a current diagnosis for this admission?: Yes (6) History of atrial fibrillation Is this a current diagnosis for this admission?: Yes - Time Time Spent: 50 to 70 Minutes - Inpatient Certification Based on my medical assessment, after consideration of the patient's comorbidities, presenting symptoms, or acuity I expect that the services needed warrant INPATIENT care.: Yes I certify that my determination is in accordance with my understanding of Medicare's requirements for reasonable and necessary INPATIENT services [42 CFR 412.3e].: Yes Medical Necessity: Significant Comorbidiites Make Outpatient Treatment Too Risky , Need Close Monitoring Due to Risk of Patient Decompensation, Need For IV Fluids, Need for Pain Control 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 We will consult orthopedics for further evaluation and management. We will give the patient oral analgesics for pain control. In the meantime DVT prophylaxis with Lovenox will be placed. We will check a urinalysis. I will gently hydrate the patient. Further testing depends on the initial evaluation as outlined above.
[2017-01-29] MEDS ORDERED: MORPHINE SULFATE 5 MG PO PRN (16:07)
[2017-01-29] MEDS ORDERED: TRAMADOL HCL 50 MG TABLET PO PRN (16:07)
[2017-01-29 16:57] LABS: PROTHROMBIN TIME 14.4 SEC (11.4-15.4)
[2017-01-29 17:10] LABS: CREATINE KINASE MB 1.1 ng/mL (<4.55); TROPONIN I 0.024 ng/mL
[2017-01-29] MEDS ORDERED: MORPHINE SULFATE 10 MG/5 ML ORAL SOLUTION UDCUP PO PRN (17:43)
[2017-01-29] MEDS ORDERED: (PENDING PHARMACY ID) (Dextran 70/Hypromellose [Artificial Tears] 1 EACH) OP SCH (18:00)
[2017-01-29] MEDS ORDERED: HALOPERIDOL 1 MG TABLET PO PRN (18:00)
--- NOTE | 2017-01-29 18:36 | PDOC CONSULTATION ---
Consultation Consult Date: 01/29/17 Consult reason:: Left hip pain. History of Present Illness Admission Date/PCP: 01/29/17 16:01 SHANNEN GREY Patient complains of: Left hip pain. History of Present Illness: 86-year-old gentleman who lives at [facility]. He is hospice. Difficult historian. Being admitted for left nondisplaced intertrochanteric hip fracture. Denies any previous injuries or surgeries. Denies any numbness or tingling or paresthesias. Complains of hip pain. Past Medical History Cardiac Medical History: Reports: Atrial Fibrillation, Coronary Artery Disease, Hyperlipidema, Hypertension Neurological Medical History: Reports: Other - Parkinson's disease Endocrine Medical History: Reports: Hypothyroidism Renal/ Medical History: Reports: Nephrolithiasis GI Medical History: Reports: Diverticulitis Musculoskeltal Medical History: Reports: Arthritis - gout Past Surgical History Past Surgical History: Reports: Appendectomy, Cardiac Catheterization, Coronary Artery Bypass Graft, Herniorrhaphy Social History Lives with: Custodial - [place] Smoking Status: Unknown if Ever Smoked Frequency of Alcohol Use: None Hx Recreational Drug Use: No Drugs: None Hx Prescription Drug Abuse: No Family History Family History: Other - No reported illness noted in the family as per previous records. Unobtainable from the patient. Parental Family History Reviewed: No Children Family History Reviewed: No Sibling(s) Family History Reviewed.: No Medication/Allergy Home Medications: Abhr Suppository 1 ea RI Q4HP PRN 01/29/17 Acetaminophen [Tylenol 650 mg Supp] 650 mg RI Q4HP PRN 01/29/17 Acetaminophen [Tylenol Extra Strength 500 mg Tablet] 2 tab PO Q6 01/29/17 Aspirin [Aspirin 81 mg Chewable Tablet] 81 mg PO DAILY 01/29/17 Carbidopa/Levodopa [Sinemet 25-100 mg Tablet] 1 each PO Q12 01/29/17 Dextran 70/Hypromellose [Artificial Tears Eye Drops] 1 drop OU Q12 01/29/17 Docusate Sodium [Colace 100 mg Capsule] 100 mg PO Q12 01/29/17 Furosemide [Lasix 40 mg Tablet] 40 mg PO Q12HP PRN 01/29/17 Guaifenesin [Mucinex] 600 mg PO Q12 01/29/17 Haloperidol [Haldol 1 Mg Tablet] 1 mg PO Q4HP PRN 01/29/17 Hyoscyamine Sulfate [Levsin 0.125 Tablet] 0.125 mg PO Q4HP PRN 01/29/17 Levothyroxine Sodium [Synthroid 50 Mcg Tablet] 50 mcg PO QAM 01/29/17 Lorazepam [Ativan 0.5 mg Tablet] 0.5 mg PO Q4HP PRN 01/29/17 Mirtazapine [Remeron 15 mg Tablet] 15 mg PO QHS 01/29/17 Morphine Sulfate [Roxanol] 5 mg PO Q1HP PRN 01/29/17 Prochlorperazine Maleate [Compazine 25 Mg Supp.Rect] 25 mg RI Q12HP PRN Tramadol HCl [Ultram 50 mg Tablet] 50 mg PO Q6HP PRN 01/29/17 Allergies/Adverse Reactions: No Known Allergies Allergy (Verified 10/30/16 10:48) Review of Systems ROS unobtainable: Due to mental status Physical Exam Vital Signs: Temp Pulse Resp BP Pulse Ox 36.5 C 34 H 139/72 H 96 01/29/17 17:06 01/29/17 17:06 01/29/17 17:06 01/29/17 17:06 Results Laboratory Results: 01/29/17 16:04 TSH 12.70 H 01/29/17 01/29/17 16:04 16:04 Creatine Kinase 54 L CK-MB (CK-2) 1.10 Troponin I 0.024 Impressions: Hip X-Ray 01/29/17 14:16 IMPRESSION: Low femoral neck fracture versus high intertrochanteric fracture on the left. Assessment & Plan - Diagnosis (1) Hip fracture, intertrochanteric Qualifiers: Encounter type: initial encounter Fracture type: closed Fracture alignment: nondisplaced Laterality: left Qualified Code(s): S72.145A - Nondisplaced intertrochanteric fracture of left femur, initial encounter for closed fracture Is this a current diagnosis for this admission?: Yes Plan: 86-year-old gentleman from hospice at [facility] with left intertrochanteric hip fracture. Patient would be best served with nailing of his left hip fracture to allow him to weight-bear as tolerated the next day with physical therapy. We will call [place] and obtain consent and approval for the surgery. Meantime bedrest, Mukherjee and, pain control. Will review the CT scan to further evaluate the fracture pattern.
[2017-01-29] MEDS: POLYVINYL ALCOHOL 1.4% OPH SOLN 15 ML OU SCH (20:44)
[2017-01-29] MEDS: DOCUSATE SODIUM 100 MG CAPSULE PO SCH (20:44)
--- NOTE | 2017-01-29 22:01 | RADIOLOGY REPORT (SQ) ---
EXAM DESCRIPTION: CT LT LOWER EXTREMITY WITHOUT COMPLETED DATE/TIME: 01/29/2017 5:31 pm REASON FOR STUDY: left hip fracture COMPARISON: Radiographs from earlier. TECHNIQUE: CT scan of the left hip performed without intravenous or oral contrast. Images reviewed with soft tissue and bone windows. Reconstructed coronal and sagittal MPR images reviewed. All imag es stored on PACS. All CT scanners at this facility use dose modulation, iterative reconstruction, and/or weight based d osing when appropriate to reduce radiation dose to as low as reasonably achievable (ALARA). [facility]: Dose Right [facility]: CareDose [facility]: Dose Right [facility]: Teradose 4D [facility]: Smart [employer] RADIATION DOSE: Up-to-date CT equipment and radiation dose reduction techniques were employed. CTDIv ol: 4.1 mGy. DLP: 150 mGy-cm. mGy. LIMITATIONS: None. FINDINGS: PELVIC BONES: Left hemipelvis is included in the field of view. Visualized sacrum scratch at visualized pelvic bones are intact. VISUALIZED SPINE: Minimally evaluated, left nida sacrum intact. Visualized portion of L5 intact. SYMPTOMATIC HIP: Left hip. Intratrochanteric nondisplaced fracture is present. OPPOSITE HIP: Not imaged. PELVIC SOFT TISSUES: Minimally included in the field of view. Left ureteral stent with distal robertson l in the bladder. Heavy vascular calcification. No drainable regional fluid collections or large he matomas. EXTRAPELVIC SOFT TISSUES: Minimally included in the field of view. No left inguinal hernia or mass. OTHER: No other significant finding. IMPRESSION: 1. Nondisplaced intertrochanteric left hip fracture. TECHNICAL DOCUMENTATION: JOB ID: [id number] Quality ID # [id number]: Final reports with documentation of one or more dose reduction techniques (e.g., Au tomated exposure control, adjustment of the mA and/or kV according to patient size, use of iterative reconstruction technique) 2010 [employer]- All Rights Reserved
[2017-01-29] MEDS: CARBIDOPA/LEVODOPA 25-100 MG TABLET PO SCH (23:34)
[2017-01-29] MEDS: MIRTAZAPINE 15 MG TABLET PO SCH (23:34)
[2017-01-29] MEDS: HEPARIN SOD (PORCINE) 5,000 UNIT/ML 1 ML SYRINGE SUBCUT SCH (23:41)
[2017-01-30] MEDS ORDERED: GLUCAGON,HUMAN RECOMB 1 MG INJ SUBCUT PRN (05:31)
[2017-01-30] MEDS ORDERED: DEXTROSE 40% GEL 15 GM TUBE PO PRN ×2 (05:31)
[2017-01-30] MEDS ORDERED: DEXTROSE 50%-WATER 25 GM/50 ML DISP.SYRIN IV PRN ×2 (05:31)
[2017-01-30 05:52] LABS: HEMATOCRIT 33.1 % (37.9-51.0); HEMOGLOBIN 11.5 g/dL (13.5-17.0); HGB HCT DIFFERENCE 1.4; MEAN CORPUSCULAR HEMOGLOBIN 32.5 pg (27.0-33.4); MEAN CORPUSCULAR HGB CONC 34.5 g/dL (32.0-36.0); MEAN CORPUSCULAR VOLUME 94 fl (80-97); RED BLOOD COUNT 3.52 10^6/uL (4.35-5.55); RED CELL DISTRIBUTION WIDTH 15.5 % (11.5-14.0); WHITE BLOOD COUNT 9.4 10^3/uL (4.0-10.5)
[2017-01-30 05:57] LABS: APPEARANCE,URINE CLOUDY; BILIRUBIN,URINE NEGATIVE (NEGATIVE); GLUCOSE, URINE NEGATIVE (NEGATIVE); KETONES,URINE NEGATIVE (NEGATIVE); LEUKOCYTE ESTERASE,URINE LARGE (NEGATIVE); NITRITE,URINE POSITIVE (NEGATIVE); PROTEIN,URINE 30 mg/dL (NEGATIVE); URINE SPECIFIC GRAVITY 1.011; UROBILINOGEN,URINE NEGATIVE mg/dL (<2.0)
[2017-01-30] MEDS ORDERED: LEVOTHYROXINE SODIUM 0.05 MG TABLET PO SCH (06:00)
[2017-01-30] MEDS ORDERED: LANSOPRAZOLE 30 MG TAB.RAP.DR PO SCH (06:00)
[2017-01-30 06:03] LABS: ANION GAP 9 (5-19); BLOOD UREA NITROGEN 21 mg/dL (7-20); CALCIUM 8.5 mg/dL (8.4-10.2); CARBON DIOXIDE 22 mmol/L (22-30); CHLORIDE 108 mmol/L (98-107); CREATININE RESULT 0.75 mg/dL (0.52-1.25); GLUCOSE 92 mg/dL (75-110); POTASSIUM 4.5 mmol/L (3.6-5.0); SODIUM 138.7 mmol/L (137-145)
[2017-01-30] MEDS: HEPARIN SOD (PORCINE) 5,000 UNIT/ML 1 ML SYRINGE SUBCUT SCH ×3 (06:47→21:46)
[2017-01-30] MEDS: RINGERS SOLUTION,LACTATED 1,000 ML IV PRN ×3 (06:47→23:18)
--- NOTE | 2017-01-30 09:07 | EKG REPORT ---
SEVERITY:- ABNORMAL ECG - SINUS RHYTHM LEFT BUNDLE BRANCH BLOCK : Confirmed by: Rubina Geller MD 30-Jan-2017 09:07:09
[2017-01-30] MEDS ORDERED: ASPIRIN 81 MG TABLET, CHEWABLE PO SCH (10:00)
[2017-01-30] MEDS ORDERED: ONDANSETRON HCL INJ/PF 4 MG/2 ML SDV IV PRN (10:30)
[2017-01-30] MEDS: DOCUSATE SODIUM 100 MG CAPSULE PO SCH ×2 (10:31→17:24)
[2017-01-30] MEDS: CARVEDILOL 3.125 MG TABLET PO SCH ×2 (10:31→21:47)
[2017-01-30] MEDS: CARBIDOPA/LEVODOPA 25-100 MG TABLET PO SCH ×2 (10:31→21:47)
[2017-01-30] MEDS: POLYVINYL ALCOHOL 1.4% OPH SOLN 15 ML OU SCH ×2 (10:32→17:23)
[2017-01-30] MEDS: RANOLAZINE 500 MG TAB.SR.12H PO SCH ×2 (10:33→21:47)
--- NOTE | 2017-01-30 11:51 | PDOC PROGRESS REPORT ---
Subjective Progress Note for:: 01/30/17 Subjective:: Patient is more awake and alert and able to engage in conversation this morning. No reported distress or discomfort at this time. Physical Exam Vital Signs: Temp Pulse Resp BP Pulse Ox 98.3 F 94 16 130/70 H 97 01/30/17 08:00 01/30/17 08:00 01/30/17 08:00 01/30/17 08:00 01/30/17 08:00 Intake & Output 01/29/17 01/30/17 01/31/17 06:59 06:59 06:59 Intake Total 774 Balance 774 Weight 55.6 kg General appearance: PRESENT: no acute distress, cooperative Head exam: PRESENT: normocephalic Eye exam: PRESENT: EOMI Mouth exam: PRESENT: dry mucosa, neck supple Neck exam: ABSENT: JVD Respiratory exam: PRESENT: clear to auscultation faisal. ABSENT: rhonchi, wheezes Cardiovascular exam: PRESENT: RRR. ABSENT: gallop GI/Abdominal exam: PRESENT: soft. ABSENT: distended Neurological exam: PRESENT: alert, awake Skin exam: PRESENT: dry, warm. ABSENT: cyanosis Results Laboratory Results: 01/30/17 05:17 01/30/17 05:17 01/29/17 01/30/17 01/30/17 16:04 05:07 05:17 WBC 9.4 RBC 3.52 L Hgb 11.5 L Hct 33.1 L MCV 94 MCH 32.5 MCHC 34.5 RDW 15.5 H Plt Count 173 Sodium Potassium Chloride Carbon Dioxide Anion Gap BUN Creatinine Est GFR ( Amer) Est GFR (Non-Af Amer) Glucose Calcium Phosphorus TSH 12.70 H Free T4 Urine Color YELLOW Urine Appearance CLOUDY Urine pH 6.0 Ur Specific [place] 1.011 Urine Protein 30 H Urine Glucose (UA) NEGATIVE Urine Ketones NEGATIVE Urine Blood LARGE H Urine Nitrite POSITIVE H Ur Leukocyte Esterase LARGE H Urine WBC (Auto) >182 Urine RBC (Auto) >182 01/30/17 01/30/17 05:17 05:17 WBC RBC Hgb Hct MCV MCH MCHC RDW Plt Count Sodium 138.7 Potassium 4.5 Chloride 108 H Carbon Dioxide 22 Anion Gap 9 BUN 21 H Creatinine 0.75 Est GFR ( Amer) > 60 Est GFR (Non-Af Amer) > 60 Glucose 92 Calcium 8.5 Phosphorus 4.0 TSH Free T4 0.87 Urine Color Urine Appearance Urine pH Ur Specific [place] Urine Protein Urine Glucose (UA) Urine Ketones Urine Blood Urine Nitrite Ur Leukocyte Esterase Urine WBC (Auto) Urine RBC (Auto) 01/29/17 01/29/17 16:04 16:04 Creatine Kinase 54 L CK-MB (CK-2) 1.10 Troponin I 0.024 Impressions: Lower Extremity CT 01/29/17 00:00 IMPRESSION: 1. Nondisplaced intertrochanteric left hip fracture. Hip X-Ray 01/29/17 14:16 IMPRESSION: Low femoral neck fracture versus high intertrochanteric fracture on the left. Assessment & Plan - Diagnosis (1) Hip fracture, intertrochanteric Qualifiers: Encounter type: initial encounter Fracture type: closed Fracture alignment: nondisplaced Laterality: left Qualified Code(s): S72.145A - Nondisplaced intertrochanteric fracture of left femur, initial encounter for closed fracture Is this a current diagnosis for this admission?: Yes (2) Coronary artery disease Qualifiers: Coronary Disease-Associated Artery/Lesion type: unspecified vessel or lesion type [place] vs. transplanted heart: [place] heart Associated angina: without angina Qualified Code(s): I25.10 - Atherosclerotic heart disease of [place] coronary artery without angina pectoris Is this a current diagnosis for this admission?: Yes (3) Hypothyroid Qualifiers: Hypothyroidism type: acquired Qualified Code(s): E03.9 - Hypothyroidism, unspecified Is this a current diagnosis for this admission?: Yes (4) Parkinson disease Is this a current diagnosis for this admission?: Yes (5) Hyperlipidemia Qualifiers: Hyperlipidemia type: unspecified Qualified Code(s): E78.5 - Hyperlipidemia , unspecified Is this a current diagnosis for this admission?: Yes (6) History of atrial fibrillation Is this a current diagnosis for this admission?: Yes - Time Time Spent with patient: Less than 15 minutes - Plan Summary Plan Summary: Patient going for hip surgery once cleared by cardiology service. Awaiting evaluation. Continue current medications and supportive care.
--- NOTE | 2017-01-30 12:56 | XCELERA REPORT ---
[address] [address] Transthoracic Echocardiogram Report Name: NICHOLAS MARRERO Age: 86 yrs Gender: Male : 1930 Patient Status: Inpatient Patient Location: [address] [place] [address] Study Date: 01/30/2017 10:04 AM Height: 70 in Weight: 122 lb BSA: 1.7 m2 Procedure: A complete two-dimensional transthoracic echocardiogram was performed (2D, M-mode, spectral and color flow Doppler). The study was technically difficult with many images being suboptimal in quality. Reason For Study: Cardiomyopathy Ordering Physician: GRANT HARRISON Performed By: Kerry Rodgers Interpretation Summary The Ejection Fraction estimate is 25-30% Left ventricular systolic function is severely reduced. Doppler measurements suggest pseudonormalized left ventricular relaxation, which is associated with grade II/IV or mild to moderate diastolic dysfunction There is anteroseptal wall akinesis Septal motion is consistent with conduction abnormality There is mild concentric left ventricular hypertrophy. The left ventricle is grossly normal size. There is a mild amount of mitral regurgitation There is a mild amount of aortic regurgitation There is no pericardial effusion. MMode/2D Measurements & Calculations RVDd: 2.3 cm LVIDd: 5.0 cm FS: 10.8 % Ao root diam: IVSd: 1.3 cm LVIDs: 4.4 cm EDV(Teich): 3.5 cm LVPWd: 1.3 cm 116.6 ml Ao root area: ESV(Teich): 89.2 ml 9.4 cm2 EF(Teich): 23.5 %LA dimension: 4.2 cm LVOT diam: 2.0 cm LA A2Cs: LA length: 5.5 cm LA A4Cs: 22.1 cm2 LVOT area: 3.0 cm2 22.8 cm2 LA Vol Index (BP): LA Volume: 45.9 ml/m2 77.7 ml Doppler Measurements & Calculations MV E max pretty: MV P1/2t max pretty: Ao V2 max: AI max pretty: 53.3 cm/sec 52.8 cm/sec 186.9 cm/sec 266.0 cm/sec MV A max pretty: MV P1/2t: 58.4 msec Ao max PG: AI max P.8 cm/sec 14.0 mmHg 28.3 mmHg MV E/A: 0.40 MVA(P1/2t): 3.8 cm2 AI dec slope: MV dec slope: ARAMIS(V,D): 2.4 cm2 264.8 cm/sec2 112.1 cm/sec2 AI P1/2t: 694.8 msec LV V1 max PG: PA V2 max: PI end-d pretty: TR max pretty: 8.7 mmHg 98.7 cm/sec 160.2 cm/sec 257.4 cm/sec LV V1 max: PA max P.9 mmHg TR max P.7 cm/sec 26.5 mmHg Left Ventricle The left ventricle is grossly normal size. There is mild concentric left ventricular hypertrophy. Left ventricular systolic function is severely reduced. The Ejection Fraction estimate is 25-30%. Doppler measurements suggest pseudonormalized left ventricular relaxation, which is associated with grade II/IV or mild to moderate diastolic dysfunction. There is anteroseptal wall akinesis. Septal motion is consistent with conduction abnormality. Right Ventricle The right ventricle is grossly normal size. There is normal right ventricular wall thickness. The right ventricular systolic function is normal. Atria The right atrium is mildly dilated. The left atrium is moderately dilated. Interarterial septum not well visualized and not well dopplered. Cannot comment on ASD/PFO presence. Mitral Valve The mitral valve leaflets are sclerotic, but show no functional abnormalities. There is mild to moderate mitral annular calcification. There is no mitral valve stenosis. There is a mild amount of mitral regurgitation. Aortic Valve The aortic valve is not well visualized secondary to technical limitations. There is no aortic valve stenosis. There is a mild amount of aortic regurgitation. Tricuspid Valve The tricuspid valve is not well visualized secondary to technical limitations. There is no tricuspid stenosis. There is a trace or physiologic amount of tricuspid regurgitation. Tricuspid regurgitation jet envelope not well defined to measure RV systolic pressure accurately. Pulmonic Valve The pulmonic valve is not well visualized. Great Vessels The aortic root is not well visualized but is probably normal size. The inferior vena cava appeared normal and decreased > 50% with respiration (RAP 5-10 mmHg). Effusions There is no pericardial effusion. : GRANT HARRISON > Grant Harrison
--- NOTE | 2017-01-30 14:13 | PDOC CONSULTATION ---
Consultation Consult Date: 01/30/17 Attending physician:: ITZEL BAI Consult reason:: Preop clearance History of Present Illness Admission Date/PCP: 01/29/17 16:01 SHANNEN GREY Patient complains of: Patient had a recent fall History of Present Illness: 86-year-old gentleman who lives at [facility]. He is hospice. Difficult historian. Being admitted for left nondisplaced intertrochanteric hip fracture. Denies any previous injuries or surgeries. Denies any numbness or tingling or paresthesias. Complains of hip pain. On direct questioning patient denied any chest pain, shortness of breath, palpitations, syncope, near syncope. Past Medical History Cardiac Medical History: Reports: Atrial Fibrillation, Coronary Artery Disease, Hyperlipidema, Hypertension Neurological Medical History: Reports: Other - Parkinson's disease Endocrine Medical History: Reports: Hypothyroidism Renal/ Medical History: Reports: Nephrolithiasis GI Medical History: Reports: Diverticulitis Musculoskeltal Medical History: Reports: Arthritis - gout Past Surgical History Past Surgical History: Reports: Appendectomy, Cardiac Catheterization, Coronary Artery Bypass Graft, Herniorrhaphy Social History Information Source: [facility] Records Lives with: [facility] Smoking Status: Unknown if Ever Smoked Frequency of Alcohol Use: None Hx Recreational Drug Use: No Drugs: None Hx Prescription Drug Abuse: No - Advance Directive Resuscitation Status: Do Not Resuscitate Family History Family History: Other - No reported illness noted in the family as per previous records. Unobtainable from the patient. Parental Family History Reviewed: Yes Children Family History Reviewed: Yes Sibling(s) Family History Reviewed.: Yes Medication/Allergy Home Medications: Abhr Suppository 1 ea FL Q4HP PRN 01/29/17 Acetaminophen [Tylenol 650 mg Supp] 650 mg FL Q4HP PRN 01/29/17 Acetaminophen [Tylenol Extra Strength 500 mg Tablet] 2 tab PO Q6 01/29/17 Aspirin [Aspirin 81 mg Chewable Tablet] 81 mg PO DAILY 01/29/17 Carbidopa/Levodopa [Sinemet 25-100 mg Tablet] 1 each PO Q12 01/29/17 Dextran 70/Hypromellose [Artificial Tears Eye Drops] 1 drop OU Q12 01/29/17 Docusate Sodium [Colace 100 mg Capsule] 100 mg PO Q12 01/29/17 Furosemide [Lasix 40 mg Tablet] 40 mg PO Q12HP PRN 01/29/17 Guaifenesin [Mucinex] 600 mg PO Q12 01/29/17 Haloperidol [Haldol 1 Mg Tablet] 1 mg PO Q4HP PRN 01/29/17 Hyoscyamine Sulfate [Levsin 0.125 Tablet] 0.125 mg PO Q4HP PRN 01/29/17 Levothyroxine Sodium [Synthroid 50 Mcg Tablet] 50 mcg PO QAM 01/29/17 Lorazepam [Ativan 0.5 mg Tablet] 0.5 mg PO Q4HP PRN 01/29/17 Mirtazapine [Remeron 15 mg Tablet] 15 mg PO QHS 01/29/17 Morphine Sulfate [Roxanol] 5 mg PO Q1HP PRN 01/29/17 Prochlorperazine Maleate [Compazine 25 Mg Supp.Rect] 25 mg FL Q12HP PRN Tramadol HCl [Ultram 50 mg Tablet] 50 mg PO Q6HP PRN 01/29/17 Allergies/Adverse Reactions: No Known Allergies Allergy (Verified 10/30/16 10:48) Review of Systems ROS unobtainable: Due to mental status Physical Exam Vital Signs: Temp Pulse Resp BP Pulse Ox 98.6 F 80 18 129/58 H 98 01/30/17 12:00 01/30/17 12:00 01/30/17 12:00 01/30/17 12:00 01/30/17 12:00 Intake & Output 01/29/17 01/30/17 01/31/17 06:59 06:59 06:59 Intake Total 774 Balance 774 Weight 55.6 kg Exam: GENERAL: Thin built and could well be malnourished and in no acute distress. Patient is alert but not oriented to place time or person. HEAD: Atraumatic, normocephalic. EYES: Pupils equal round and reactive to light, extraocular movements intact, sclera anicteric, conjunctiva are normal. ENT: TMs normal, nares patent, oropharynx clear without exudates. Moist mucous membranes. No oral ulcerations or bleeding gums noted NECK: supple without lymphadenopathy or JVD. Trachea is central. No cervical or axillary lymphadenopathy noted. Carotids are 2+ LUNGS: Breath sounds bibasilar fine crackles at bases. No significant dullness noted. CHEST: Palpation of chest wall shows no significant chest wall tenderness. HEART: [place] [employer], No PSH, 2/6 NOHEMY aortic area, 1/6 [place] systolic murmur mitral area, rubs or gallops. ABDOMEN: Soft, no significant tenderness appreciated, normoactive bowel sounds. No guarding, no rebound. No rigidity noted . No masses appreciated. EXTREMITIES: Pedal pulses are 1-2+, no calf tenderness noted, Trace + pedal edema noted. No clubbing or cyanosis. NEUROLOGICAL: Patient is alert but is not able to participate in neurological exam because of patient's current mental status PSYCH: Patient cannot participate in a neurologic and psych exam because of the patient's current mental status SKIN: No significant ecchymosis, rash, ulcerations or signs of pruritus noted. MUSCULOSKELETAL EXAM: No significant joint swelling noted. Exam consistent with left hip fracture. Results Laboratory Results: 01/30/17 05:17 01/30/17 05:17 01/29/17 01/30/17 01/30/17 16:04 05:07 05:17 WBC 9.4 RBC 3.52 L Hgb 11.5 L Hct 33.1 L MCV 94 MCH 32.5 MCHC 34.5 RDW 15.5 H Plt Count 173 Sodium Potassium Chloride Carbon Dioxide Anion Gap BUN Creatinine Est GFR ( Amer) Est GFR (Non-Af Amer) Glucose Calcium Phosphorus TSH 12.70 H Free T4 Urine Color YELLOW Urine Appearance CLOUDY Urine pH 6.0 Ur Specific [place] 1.011 Urine Protein 30 H Urine Glucose (UA) NEGATIVE Urine Ketones NEGATIVE Urine Blood LARGE H Urine Nitrite POSITIVE H Ur Leukocyte Esterase LARGE H Urine WBC (Auto) >182 Urine RBC (Auto) >182 01/30/17 01/30/17 05:17 05:17 WBC RBC Hgb Hct MCV MCH MCHC RDW Plt Count Sodium 138.7 Potassium 4.5 Chloride 108 H Carbon Dioxide 22 Anion Gap 9 BUN 21 H Creatinine 0.75 Est GFR ( Amer) > 60 Est GFR (Non-Af Amer) > 60 Glucose 92 Calcium 8.5 Phosphorus 4.0 TSH Free T4 0.87 Urine Color Urine Appearance Urine pH Ur Specific [place] Urine Protein Urine Glucose (UA) Urine Ketones Urine Blood Urine Nitrite Ur Leukocyte Esterase Urine WBC (Auto) Urine RBC (Auto) 01/29/17 01/29/17 16:04 16:04 Creatine Kinase 54 L CK-MB (CK-2) 1.10 Troponin I 0.024 EKG Comments: Sinus rhythm with left bundle branch block pattern, unchanged from before Impressions: Lower Extremity CT 01/29/17 00:00 IMPRESSION: 1. Nondisplaced intertrochanteric left hip fracture. Hip X-Ray 01/29/17 14:16 IMPRESSION: Low femoral neck fracture versus high intertrochanteric fracture on the left. Assessment & Plan - Diagnosis (1) Preoperative cardiovascular examination Is this a current diagnosis for this admission?: Yes (2) Coronary artery disease Qualifiers: Coronary Disease-Associated Artery/Lesion type: unspecified vessel or lesion type [place] vs. transplanted heart: [place] heart Associated angina: without angina Qualified Code(s): I25.10 - Atherosclerotic heart disease of [place] coronary artery without angina pectoris Is this a current diagnosis for this admission?: Yes (3) History of atrial fibrillation Is this a current diagnosis for this admission?: Yes (4) Hyperlipidemia Qualifiers: Hyperlipidemia type: unspecified Qualified Code(s): E78.5 - Hyperlipidemia , unspecified Is this a current diagnosis for this admission?: Yes (5) Closed left hip fracture Qualifiers: Encounter type: initial encounter Qualified Code(s): S72.002A - Fracture of unspecified part of neck of left femur, initial encounter for closed fracture Is this a current diagnosis for this admission?: Yes - Notes Notes: Preop cardiovascular examination: Patient has left hip fracture. He has history of coronary artery disease. Patient also has history of cardiomyopathy. 2D echo obtained and is noted to show severely depressed LVEF at 25-30%. On comparing with prior echocardiogram from approximately 2 years ago, there is no significant changes. Patient felt stable from cardiac standpoint but has poor baseline status therefore felt to be at increased risk. However do not feel patient is in the prohibitive risk criteria. Patient is not in CHF, not having active angina clinically. Therefore cleared from cardiac standpoint is surgical approach is chosen for fixing the left hip joint. Will be available to provide any postop care if needed. CAD: Have started patient on statin, small dose of beta-zara and also placed patient on Ranexa. Will add angiotensin receptor zara/TRISTIN inhibitor later on. History of atrial fibrillation: Currently patient seems to be in sinus rhythm. Continue to monitor. There is increased risk of postop A. fib. If this happens , would recommend amiodarone bolus and drip protocol. Dyslipidemia: Patient started on statin therapy. Hip fracture: Being adequately managed by orthopedic surgeon and hospitalist. - Time Time Spent: 30 to 50 Minutes - More than 50% of the time spent coordinating care , discussing management plans with involved caregivers. Management plans discussed with involved personnels. Medical decision making was of moderate to high complexity, patient's has multiple comorbidities. Medications reviewed and adjusted accordingly: Yes Within: within 48 hours
--- NOTE | 2017-01-30 15:28 | PDOC PROGRESS REPORT ---
Subjective Progress Note for:: 01/30/17 Subjective:: No issues overnight. Resting comfortably in bed. Physical Exam Vital Signs: Temp Pulse Resp BP Pulse Ox 37.0 C 81 18 129/58 H 98 01/30/17 12:00 01/30/17 14:00 01/30/17 12:00 01/30/17 12:00 01/30/17 12:00 Intake & Output 01/29/17 01/30/17 01/31/17 06:59 06:59 06:59 Intake Total 774 Balance 774 Weight 55.6 kg General appearance: PRESENT: no acute distress Adult Front & Back Image: 1 - Tender to palpation. Pain with range of motion. Moves toes distally to stimuli. Good capillary refill. Results Laboratory Results: 01/30/17 05:17 01/30/17 05:17 01/29/17 01/30/17 01/30/17 16:04 05:07 05:17 WBC 9.4 RBC 3.52 L Hgb 11.5 L Hct 33.1 L MCV 94 MCH 32.5 MCHC 34.5 RDW 15.5 H Plt Count 173 Sodium Potassium Chloride Carbon Dioxide Anion Gap BUN Creatinine Est GFR ( Amer) Est GFR (Non-Af Amer) Glucose Calcium Phosphorus TSH 12.70 H Free T4 Urine Color YELLOW Urine Appearance CLOUDY Urine pH 6.0 Ur Specific [place] 1.011 Urine Protein 30 H Urine Glucose (UA) NEGATIVE Urine Ketones NEGATIVE Urine Blood LARGE H Urine Nitrite POSITIVE H Ur Leukocyte Esterase LARGE H Urine WBC (Auto) >182 Urine RBC (Auto) >182 01/30/17 01/30/17 05:17 05:17 WBC RBC Hgb Hct MCV MCH MCHC RDW Plt Count Sodium 138.7 Potassium 4.5 Chloride 108 H Carbon Dioxide 22 Anion Gap 9 BUN 21 H Creatinine 0.75 Est GFR ( Amer) > 60 Est GFR (Non-Af Amer) > 60 Glucose 92 Calcium 8.5 Phosphorus 4.0 TSH Free T4 0.87 Urine Color Urine Appearance Urine pH Ur Specific [place] Urine Protein Urine Glucose (UA) Urine Ketones Urine Blood Urine Nitrite Ur Leukocyte Esterase Urine WBC (Auto) Urine RBC (Auto) 01/29/17 01/29/17 16:04 16:04 Creatine Kinase 54 L CK-MB (CK-2) 1.10 Troponin I 0.024 Impressions: Lower Extremity CT 01/29/17 00:00 IMPRESSION: 1. Nondisplaced intertrochanteric left hip fracture. Hip X-Ray 01/29/17 14:16 IMPRESSION: Low femoral neck fracture versus high intertrochanteric fracture on the left. Status: Image reviewed by me Assessment & Plan - Diagnosis (1) Hip fracture, intertrochanteric Qualifiers: Encounter type: initial encounter Fracture type: closed Fracture alignment: nondisplaced Laterality: left Qualified Code(s): S72.145A - Nondisplaced intertrochanteric fracture of left femur, initial encounter for closed fracture Is this a current diagnosis for this admission?: Yes - Plan Summary Plan Summary: 86-year-old demented patient with Parkinson who is in hospice. Patient is mostly bedridden and very high risk surgical patient so after discussing with anesthesia patient polypous best served with bedrest and pain control. At this time we will not proceed with intramedullary nailing of the hip fracture.
[2017-01-30] MEDS ORDERED: INFLUENZA ADLT QUAD (36MOS+) 2017-18 VAC 0.5 ML SYR IM PRN (17:16)
[2017-01-30] MEDS: MIRTAZAPINE 15 MG TABLET PO SCH (21:46)
[2017-01-30] MEDS: ATORVASTATIN CALCIUM 20 MG TABLET PO SCH (21:47)
[2017-01-31] MEDS: LANSOPRAZOLE 30 MG TAB.RAP.DR PO SCH (06:07)
[2017-01-31] MEDS: HEPARIN SOD (PORCINE) 5,000 UNIT/ML 1 ML SYRINGE SUBCUT SCH ×3 (06:07→22:06)
[2017-01-31] MEDS: LEVOTHYROXINE SODIUM 0.075 MG TABLET PO SCH (07:59)
[2017-01-31] MEDS ORDERED: LEVOTHYROXINE SODIUM 0.05 MG TABLET PO SCH (08:00)
[2017-01-31] MEDS: RINGERS SOLUTION,LACTATED 1,000 ML IV PRN (08:02)
--- NOTE | 2017-01-31 09:05 | PDOC PROGRESS REPORT ---
Subjective Progress Note for:: 01/31/17 Subjective:: Patient awake and able to respond, tolerates oral intake, no reported temperature spikes no respiratory distress nausea nor vomiting or diarrhea. Patient reportedly cleared by cardiology to undergo surgery. Physical Exam Vital Signs: Temp Pulse Resp BP Pulse Ox 98.2 F 77 19 140/74 H 96 01/31/17 07:24 01/31/17 07:24 01/31/17 07:24 01/31/17 07:24 01/31/17 07:24 Intake & Output 01/30/17 01/31/17 02/01/17 06:59 06:59 06:59 Intake Total 774 2591 Output Total 740 Balance 774 1851 Weight 55.6 kg 59 kg General appearance: PRESENT: no acute distress, thin Head exam: PRESENT: normocephalic Eye exam: PRESENT: EOMI Mouth exam: PRESENT: moist Neck exam: ABSENT: JVD Respiratory exam: PRESENT: clear to auscultation faisal. ABSENT: rhonchi, wheezes Cardiovascular exam: PRESENT: RRR. ABSENT: gallop GI/Abdominal exam: PRESENT: soft. ABSENT: distended, tenderness Neurological exam: PRESENT: alert, awake Skin exam: PRESENT: dry, warm. ABSENT: cyanosis Results Laboratory Results: 01/30/17 05:17 01/30/17 05:17 01/29/17 01/29/17 16:04 16:04 Creatine Kinase 54 L CK-MB (CK-2) 1.10 Troponin I 0.024 Impressions: Lower Extremity CT 01/29/17 00:00 IMPRESSION: 1. Nondisplaced intertrochanteric left hip fracture. Hip X-Ray 01/29/17 14:16 IMPRESSION: Low femoral neck fracture versus high intertrochanteric fracture on the left. Assessment & Plan - Diagnosis (1) Hip fracture, intertrochanteric Qualifiers: Encounter type: initial encounter Fracture type: closed Fracture alignment: nondisplaced Laterality: left Qualified Code(s): S72.145A - Nondisplaced intertrochanteric fracture of left femur, initial encounter for closed fracture Is this a current diagnosis for this admission?: Yes (2) Coronary artery disease Qualifiers: Coronary Disease-Associated Artery/Lesion type: unspecified vessel or lesion type [place] vs. transplanted heart: [place] heart Associated angina: without angina Qualified Code(s): I25.10 - Atherosclerotic heart disease of [place] coronary artery without angina pectoris Is this a current diagnosis for this admission?: Yes (3) Hypothyroid Qualifiers: Hypothyroidism type: acquired Qualified Code(s): E03.9 - Hypothyroidism, unspecified Is this a current diagnosis for this admission?: Yes (4) Parkinson disease Is this a current diagnosis for this admission?: Yes (5) Hyperlipidemia Qualifiers: Hyperlipidemia type: unspecified Qualified Code(s): E78.5 - Hyperlipidemia , unspecified Is this a current diagnosis for this admission?: Yes (6) History of atrial fibrillation Is this a current diagnosis for this admission?: Yes - Time Time Spent with patient: Less than 15 minutes - Plan Summary Plan Summary: Continue supportive care and pain management at this time. Continue gentle hydration. Awaiting surgical intervention.
[2017-01-31] MEDS: RANOLAZINE 500 MG TAB.SR.12H PO SCH ×2 (09:33→22:06)
[2017-01-31] MEDS: DOCUSATE SODIUM 100 MG CAPSULE PO SCH ×2 (09:34→17:31)
[2017-01-31] MEDS: POLYVINYL ALCOHOL 1.4% OPH SOLN 15 ML OU SCH ×2 (09:34→17:32)
[2017-01-31] MEDS: CARBIDOPA/LEVODOPA 25-100 MG TABLET PO SCH ×2 (09:34→22:00)
[2017-01-31] MEDS: CARVEDILOL 3.125 MG TABLET PO SCH ×2 (09:35→22:01)
[2017-01-31] MEDS: ASPIRIN 81 MG TABLET, CHEWABLE PO SCH (09:36)
--- NOTE | 2017-01-31 11:06 | PDOC PROGRESS REPORT ---
Subjective Progress Note for:: 01/31/17 Subjective:: Patient noted to be confused but comfortable. Does not seem to be in any significant discomfort. Orthopedic surgeons note reviewed. Apparently surgery is not planned. Physical Exam Vital Signs: Temp Pulse Resp BP Pulse Ox 98.2 F 77 19 140/74 H 96 01/31/17 07:24 01/31/17 07:24 01/31/17 07:24 01/31/17 07:24 01/31/17 07:24 Intake & Output 01/30/17 01/31/17 02/01/17 06:59 06:59 06:59 Intake Total 774 2591 Output Total 740 Balance 774 1851 Weight 55.6 kg 59 kg Exam: GENERAL: Thin built and in no acute distress. Patient is alert but not oriented to place time or person. HEAD: Atraumatic, normocephalic. EYES: Pupils equal round and reactive to light, extraocular movements intact, sclera anicteric, conjunctiva are normal. ENT: TMs normal, nares patent, oropharynx clear without exudates. Moist mucous membranes. No oral ulcerations or bleeding gums noted NECK: supple without lymphadenopathy or JVD. Trachea is central. No cervical or axillary lymphadenopathy noted. Carotids are 2+ LUNGS: Breath sounds bibasilar fine crackles at bases. No significant dullness noted. CHEST: Palpation of chest wall shows no significant chest wall tenderness. HEART: [employer] [employer], No PSH, 2/6 NOHEMY aortic area, 1/6 delatorre systolic murmur mitral area, rubs or gallops. ABDOMEN: Soft, no significant tenderness appreciated, normoactive bowel sounds. No guarding, no rebound. No rigidity noted . No masses appreciated. EXTREMITIES: Pedal pulses are 1-2+, no calf tenderness noted, Trace + pedal edema noted. No clubbing or cyanosis. NEUROLOGICAL: Patient is alert but is not able to participate in neurological exam because of patient's current mental status PSYCH: Patient cannot participate in a neurologic and psych exam because of the patient's current mental status SKIN: No significant ecchymosis, rash, ulcerations or signs of pruritus noted. MUSCULOSKELETAL EXAM: No significant joint swelling noted. Results Laboratory Results: 01/30/17 05:17 01/30/17 05:17 01/29/17 01/29/17 16:04 16:04 Creatine Kinase 54 L CK-MB (CK-2) 1.10 Troponin I 0.024 Impressions: Lower Extremity CT 01/29/17 00:00 IMPRESSION: 1. Nondisplaced intertrochanteric left hip fracture. Hip X-Ray 01/29/17 14:16 IMPRESSION: Low femoral neck fracture versus high intertrochanteric fracture on the left. Assessment & Plan - Diagnosis (1) Preoperative cardiovascular examination Is this a current diagnosis for this admission?: Yes (2) Coronary artery disease Qualifiers: Coronary Disease-Associated Artery/Lesion type: unspecified vessel or lesion type [place] vs. transplanted heart: [place] heart Associated angina: without angina Qualified Code(s): I25.10 - Atherosclerotic heart disease of [place] coronary artery without angina pectoris Is this a current diagnosis for this admission?: Yes (3) History of atrial fibrillation Is this a current diagnosis for this admission?: Yes (4) Hyperlipidemia Qualifiers: Hyperlipidemia type: unspecified Qualified Code(s): E78.5 - Hyperlipidemia , unspecified Is this a current diagnosis for this admission?: Yes (5) Closed left hip fracture Qualifiers: Encounter type: initial encounter Qualified Code(s): S72.002A - Fracture of unspecified part of neck of left femur, initial encounter for closed fracture Is this a current diagnosis for this admission?: Yes (6) Cardiomyopathy Qualifiers: Cardiomyopathy type: unspecified Qualified Code(s): I42.9 - Cardiomyopathy , unspecified Is this a current diagnosis for this admission?: Yes - Notes Notes: It seems patient not going for surgery after all. Coronary artery disease: Stable History of atrial fibrillation: Currently maintaining sinus rhythm. Would be suboptimal candidate for chronic anticoagulation. Dyslipidemia: Continue statin therapy. Closed left hip fracture: Conservative management per orthopedic surgeon. Cardiomyopathy: Ischemic, currently stable without any CHF signs or symptoms. - Time Time with patient: 15-25 minutes - CODE STATUS : was discussed, patient remains DO NOT RESUSCITATE. Surrogate decision-maker unchanged. More than 50% of the time spent coordinating care, discussing management plans with involved caregivers. Management plans discussed with involved personnels. Medications reviewed and adjusted accordingly: Yes
--- NOTE | 2017-01-31 16:24 | PDOC PROGRESS REPORT ---
Subjective Progress Note for:: 01/31/17 Subjective:: Patient confused in bed. Nurse tells me patient is not eating adequate nutrition. No issues overnight Physical Exam Vital Signs: Temp Pulse Resp BP Pulse Ox 36.8 C 67 18 149/61 H 99 01/31/17 11:05 01/31/17 11:05 01/31/17 11:05 01/31/17 11:05 01/31/17 11:05 Intake & Output 01/30/17 01/31/17 02/01/17 06:59 06:59 06:59 Intake Total 774 2591 Output Total 740 Balance 774 1851 Weight 55.6 kg 59 kg Adult Front & Back Image: 1 - Patient still has tenderness to palpation over the groin and hip region. Limb lengths are grossly equal with no obvious deformity. Good capillary refill distally. Moves toes to stimuli. Results Laboratory Results: 01/30/17 05:17 01/30/17 05:17 01/30/17 03:37 Nasophary (Mrsa Only) MRSA Surveillance Culture - Final NO MRSA RECOVERED 01/29/17 01/29/17 16:04 16:04 Creatine Kinase 54 L CK-MB (CK-2) 1.10 Troponin I 0.024 Impressions: Lower Extremity CT 01/29/17 00:00 IMPRESSION: 1. Nondisplaced intertrochanteric left hip fracture. Hip X-Ray 01/29/17 14:16 IMPRESSION: Low femoral neck fracture versus high intertrochanteric fracture on the left. Assessment & Plan - Diagnosis (1) Hip fracture, intertrochanteric Qualifiers: Encounter type: initial encounter Fracture type: closed Fracture alignment: nondisplaced Laterality: left Qualified Code(s): S72.145A - Nondisplaced intertrochanteric fracture of left femur, initial encounter for closed fracture Is this a current diagnosis for this admission?: Yes - Plan Summary Plan Summary: 86-year-old demented patient who is mostly bedridden and at this point having arrhythmias. I know he is cleared by cardiology but spoke with the [facility] and [facility] and he will be placed back on hospice and returned and will treat his left hip fracture nonoperatively with pain control and bedrest. Patient can follow-up in the office in 8 weeks for repeat x-ray.
[2017-01-31] MEDS ORDERED: CEFTRIAXONE 1 GM/D5W RTU 1 GM/50 ML RTUPB IV SCH (18:00)
[2017-01-31] MEDS: ATORVASTATIN CALCIUM 20 MG TABLET PO SCH (22:06)
[2017-01-31] MEDS: MIRTAZAPINE 15 MG TABLET PO SCH (22:06)
[2017-02-01] MEDS: RINGERS SOLUTION,LACTATED 1,000 ML IV PRN ×2 (01:42→10:10)
[2017-02-01] MEDS: HEPARIN SOD (PORCINE) 5,000 UNIT/ML 1 ML SYRINGE SUBCUT SCH ×2 (05:06→14:28)
[2017-02-01] MEDS: LANSOPRAZOLE 30 MG TAB.RAP.DR PO SCH (05:06)
[2017-02-01] MEDS: ASPIRIN 81 MG TABLET, CHEWABLE PO SCH (10:13)
[2017-02-01] MEDS: CARBIDOPA/LEVODOPA 25-100 MG TABLET PO SCH (10:13)
[2017-02-01] MEDS: LEVOTHYROXINE SODIUM 0.075 MG TABLET PO SCH (10:13)
[2017-02-01] MEDS: POLYVINYL ALCOHOL 1.4% OPH SOLN 15 ML OU SCH (10:20)
[2017-02-01] MEDS: RANOLAZINE 500 MG TAB.SR.12H PO SCH (10:23)
[2017-02-01] MEDS: CARVEDILOL 3.125 MG TABLET PO SCH (10:23)
[2017-02-01] MEDS: DOCUSATE SODIUM 100 MG CAPSULE PO SCH (10:23)
--- NOTE | 2017-02-01 10:31 | PDOC DISCHARGE SUMMARY ---
General - Admit/Disc Date/PCP Admission Date/Primary Care Provider: 01/29/17 16:01 SHANNEN GREY Discharge Date: 02/01/17 - Discharge Diagnosis (1) Hip fracture, intertrochanteric Is this a current diagnosis for this admission?: Yes (2) UTI (urinary tract infection) Is this a current diagnosis for this admission?: Yes (3) Coronary artery disease Is this a current diagnosis for this admission?: Yes (4) Hypothyroid Is this a current diagnosis for this admission?: Yes (5) Parkinson disease Is this a current diagnosis for this admission?: Yes (6) Hyperlipidemia Is this a current diagnosis for this admission?: Yes (7) History of atrial fibrillation Is this a current diagnosis for this admission?: Yes - Additional Information Resuscitation Status: Do Not Resuscitate Discharge Diet: As Tolerated Discharge Activity: Activity As Tolerated, Balance Activity w/Rest Home Medications: Abhr Suppository 1 ea TN Q4HP PRN 01/29/17 Acetaminophen [Tylenol 650 mg Supp] 650 mg TN Q4HP PRN 01/29/17 Acetaminophen [Tylenol Extra Strength 500 mg Tablet] 2 tab PO Q6 01/29/17 Aspirin [Aspirin 81 mg Chewable Tablet] 81 mg PO DAILY 01/29/17 Carbidopa/Levodopa [Sinemet 25-100 mg Tablet] 1 each PO Q12 01/29/17 Dextran 70/Hypromellose [Artificial Tears Eye Drops] 1 drop OU Q12 01/29/17 Docusate Sodium [Colace 100 mg Capsule] 100 mg PO Q12 01/29/17 Furosemide [Lasix 40 mg Tablet] 40 mg PO Q12HP PRN 01/29/17 Guaifenesin [Mucinex] 600 mg PO Q12 01/29/17 Haloperidol [Haldol 1 mg Tablet] 1 mg PO Q4HP PRN 01/29/17 Hyoscyamine Sulfate [Levsin 0.125 Tablet] 0.125 mg PO Q4HP PRN 01/29/17 Levothyroxine Sodium [Synthroid 0.05 mg Tablet] 50 mcg PO QAM 01/29/17 Mirtazapine [Remeron 15 mg Tablet] 15 mg PO QHS 01/29/17 Prochlorperazine Maleate [Compazine 25 mg Supp.rect] 25 mg TN Q12HP PRN 10/04/ 17 Aspirin [Aspirin 81 mg Chewable Tablet] 81 mg PO DAILY tab.chew 02/01/17 Atorvastatin Calcium [Lipitor 20 mg Tablet] 20 mg PO QHS tablet 02/01/17 Carvedilol [Coreg 3.125 mg Tablet] 3.125 mg PO Q12 tablet 02/01/17 Levofloxacin [Levaquin 500 mg Tablet] 500 mg PO DAILY #5 tablet 02/01/17 Lorazepam [Ativan 0.5 mg Tablet] 0.5 mg PO Q4HP PRN #20 tablet 02/01/17 Morphine Sulfate [Roxanol] 5 mg PO Q1HP PRN #30 ml 02/01/17 Polyvinyl Alcohol [Liquitears 1.4% Ophth Soln 15 ml] 1 drop OU BID bottle 02/01 Tramadol HCl [Ultram 50 mg Tablet] 50 mg PO Q6HP PRN #20 tablet 02/01/17 Additional Information: Resume hospice care at the facility. Antibiotics to continue for 5 days total. Follow-up final urine culture in 2 days History of Present Illness Patient complains of: Fall History of Present Illness: NICHOLAS MARRERO is a 86 year old male, with history of Parkinson's disease, coronary artery disease, hypertension and hypothyroidism reportedly bedbound apparently fell in the group home starting to develop hip pain reportedly on the left. The patient was sent to the emergency room for evaluation where an x- ray of the pelvis revealed a fracture in the left hip. Patient was given Dilaudid and unable to respond at this time. Information obtained from prior records. Information obtained from the transfer note and emergency room records as well. It is unclear how the patient was able to get out of the bed. No reported respiratory discomfort nor temperature spikes nor any nausea or vomiting. No other information available at this time. Information unobtainable from the patient. Hospital Course Hospital Course: The patient was admitted to telemetry. Apparently the patient was on hospice and is a DNR. Orthopedic surgery was consulted and cardiology was consulted for preoperative clearance. Eventually on further evaluation surgical service opted for conservative management with therapy as well as pain management. Patient is a high risk for surgery. No operative intervention was recommended. Family was informed by surgical service and agreeable with the plan and to return to assisted facility to resume hospice care on discharge. Patient was placed on pain medications. Course was noted for urinary tract infection growing gram-negative rods in the urine patient was started on ceftriaxone and received 2 doses. The rest of the hospital stays unremarkable. She was discharged back to assisted facility to resume hospice care. Physical Exam Vital Signs: Temp Pulse Resp BP Pulse Ox 97.8 F 76 18 125/55 L 95 02/01/17 07:57 02/01/17 07:57 02/01/17 07:57 02/01/17 07:57 02/01/17 07:57 Intake & Output 01/31/17 02/01/17 02/02/17 06:59 06:59 06:59 Intake Total 2591 2885 Output Total 740 1125 Balance 1851 1760 Weight 59 kg 59.4 kg General appearance: PRESENT: no acute distress, thin Head exam: PRESENT: normocephalic Eye exam: PRESENT: EOMI Mouth exam: PRESENT: moist, neck supple Neck exam: ABSENT: JVD Respiratory exam: PRESENT: clear to auscultation faisal. ABSENT: rhonchi, wheezes Cardiovascular exam: PRESENT: RRR. ABSENT: gallop GI/Abdominal exam: PRESENT: hypoactive bowel sounds, soft. ABSENT: distended Neurological exam: PRESENT: alert, awake Skin exam: PRESENT: dry, warm. ABSENT: cyanosis Results Laboratory Results: 01/30/17 05:17 01/30/17 05:17 01/30/17 03:37 Nasophary (Mrsa Only) MRSA Surveillance Culture - Final NO MRSA RECOVERED 01/29/17 01/29/17 16:04 16:04 Creatine Kinase 54 L CK-MB (CK-2) 1.10 Troponin I 0.024 Impressions: Lower Extremity CT 01/29/17 00:00 IMPRESSION: 1. Nondisplaced intertrochanteric left hip fracture. Hip X-Ray 01/29/17 14:16 IMPRESSION: Low femoral neck fracture versus high intertrochanteric fracture on the left. Qualifiers [place] BEING DISCHARGED WITH ANY OF THE FOLLOWING DIAGNOSIS?: No Plan Discharge Plan: Follow-up with primary care physician in 2-5 days. Patient to be followed by assisted facility physician. Time Spent: Less than 30 Minutes
[2017-02-01] MEDS ORDERED: CEFTRIAXONE 1 GM/D5W RTU 1 GM/50 ML RTUPB IV ONE (11:30)
[2017-02-01 12:10] VITALS: BP 113/58
[2017-02-02] MEDS ORDERED: CEFTRIAXONE 1 GM/D5W RTU 1 GM/50 ML RTUPB IV SCH (10:00)
--- NOTE | 2017-02-12 07:48 | Progress Note ---
Provider Note Provider Note: Addendum to discharge summary : Addendum the final diagnosis: Urinary tract infection present on admission
== END 2017-02-01 15:06 | DRG 536 ==
LOC: ER 14:12 → EH 16:01 → UNDOADMIN 16:07 → EH 16:07 → 5 17:29
PROVIDERS: ADMIT Internal Medicine; ATTEND Internal Medicine
PROC: 3E0234Z Introduction of Serum, Toxoid and Vaccine into Muscle, Percutaneous Approach (ICD-10-PCS; principal; 2017-02-01)
DX: S72.145A Nondisplaced intertrochanteric fracture of left femur, initial encounter for closed fracture (principal); N39.0 Urinary tract infection, site not specified; W18.30XA Fall on same level, unspecified, initial encounter; Y92.129 Unspecified place in nursing home as the place of occurrence of the external cause; Z66 Do not resuscitate; I48.91 Unspecified atrial fibrillation; I25.10 Atherosclerotic heart disease of native coronary artery without angina pectoris; E78.5 Hyperlipidemia, unspecified; E03.9 Hypothyroidism, unspecified; M10.9 Gout, unspecified; G20 Parkinson's disease; I10 Essential (primary) hypertension; Z90.49 Acquired absence of other specified parts of digestive tract; Z95.1 Presence of aortocoronary bypass graft; Z79.899 Other long term (current) drug therapy; Z79.82 Long term (current) use of aspirin; Z74.01 Bed confinement status; Z23 Encounter for immunization
CPT/HCPCS: 36415; 80048; 80053; 81001; 82550; 82553; 82962; 84100; 84439; 84443; 84484; 85025; 85027; 85610; 85730; 87086; 87088; 87186; 90686; 93005; 93010; 93306; 96374; 99285; J0696; J1170; J1644; J3490; J7030; J7120